=== PATIENT | male | born 1945 | race Caucasian/White ===

== ENCOUNTER 2018-02-27 22:35 | Emergency (ER) | payer MEDICARE ==
[2018-02-28 00:48] LABS: Appearance,Urine Clear (Clear); Bilirubin,Urine Negative (Negative); Blood,Urine Negative (Negative); Color,Urine Yellow; Glucose,Urine (UA) Negative (Negative); Ketones,Urine Negative (Negative); Leukocyte Esterase,Urine Negative (Negative); Nitrite,Urine Negative (Negative); PH, Urine 6.5 (5.0-8.0); Protein,Urine Trace (Negative); Specific Gravity,Urine 1.011 (1.001-1.035); Urobilinogen,Urine <2.0 mg/dL (<2.0)
--- NOTE | 2018-02-28 01:02 | ED ---
Skin/Abscess/FB HPI - General Chief complaint: Skin/Abscess/Foreign Body Stated complaint: rash Time Seen by Provider: 02/27/18 23:08 Source: patient, family Mode of arrival: ambulatory Limitations: no limitations - History of Present Illness Initial comments: 72-year-old male presenting for evaluation of rash to the penis. He states that it initially started out as a discomfort with only mild discoloration however he started putting cream on it and now it is significantly worse. Rash extends from the penis along the perineum to the gluteal cleft. He denies any fevers, significant pain, popping sensation when palpating the area, or enlargement of the scrotum. He is a nondiabetic. - Related Data Previous Rx's Medication Instructions Recorded Nystatin 100,000 Unit/gm Powd 1 applic TOPICAL TID #1 bottle 02/28/18 [Mycostatin Powder] Allergies Allergy/AdvReac Type Severity Reaction Status Date / Time No Known Allergies Allergy Verified 02/27/18 22:41 Review of Systems ROS Statement: Those systems with pertinent positive or pertinent negative responses have been documented in the HPI. ROS Other: All systems not noted in ROS Statement are negative. Constitutional: Denies: fever, chills Eyes: Denies: eye pain, vision change ENT: Denies: ear pain, throat pain Respiratory: Denies: cough, dyspnea Cardiovascular: Denies: chest pain, palpitations Endocrine: Denies: fatigue, polydipsia, polyuria Gastrointestinal: Denies: abdominal pain, nausea, vomiting Genitourinary: Reports: dysuria (ott the urethral meatus), other (rash to glans of penis, along the perineum, and in the gluteal cleft). Denies: urgency , frequency, hematuria, discharge, testicular pain, testicular mass Musculoskeletal: Denies: back pain, arthralgia, myalgia Skin: Reports: rash, lesions, change in color. Denies: change in hair/nails, pruritus Neurological: Denies: headache, weakness Psychiatric: Denies: anxiety, depression Hematological/Lymphatic: Denies: easy bleeding, easy bruising Past Medical History Past Medical History: Hypertension History of Any Multi-Drug Resistant Organisms: None Reported Additional Past Surgical History / Comment(s): tumor removed from left forearm Past Psychological History: No Psychological Hx Reported Smoking Status: Never smoker Past Alcohol Use History: None Reported Past Drug Use History: None Reported General Exam Limitations: no limitations General appearance: alert, in no apparent distress Head exam: Present: atraumatic, normocephalic Eye exam: Present: normal appearance, PERRL, EOMI ENT exam: Present: normal exam, normal oropharynx Neck exam: Present: normal inspection. Absent: tenderness Respiratory exam: Present: normal lung sounds bilaterally. Absent: respiratory distress Cardiovascular Exam: Present: regular rate, normal rhythm GI/Abdominal exam: Present: soft. Absent: distended, tenderness, guarding, rebound, rigid Rectal exam: Present: deferred Extremities exam: Present: normal inspection, full ROM Back exam: Present: normal inspection, full ROM Neurological exam: Present: alert, oriented X3 Psychiatric exam: Present: normal affect, normal mood Skin exam: Present: warm, rash, erythema, other (Consistent with balanitis and candidal infection with satellite lesions. Rash is limited to gluteal cleft and glans penis which is retracted into the penis itself.). Absent: cyanosis, diaphoretic, urticaria, vesicles Course Vital Signs 02/27/18 02/28/18 22:37 01:07 Temperature 99.1 F 97.8 F Pulse Rate 89 80 Respiratory 20 18 Rate Blood Pressure 190/94 140/60 O2 Sat by Pulse 96 98 Oximetry Medical Decision Making - Medical Decision Making 72-year-old male presented for evaluation of rash to the glans of the penis and along the perineum into the gluteal cleft. On physical examination there are lesions to the penis that are consistent with candidal infection. Satellite lesions are also noted to the gluteal cleft. There is no crepitus noted, swelling, abnormal discoloration at the patient is not a diabetic which makes the concern for 4 years gangrene less. Urinalysis was obtained which showed no UTI or fungus in the urine. Patient was given instructions on keeping the area dry and how to use the nystatin powder. Further given return instructions and the concern for 4 years gangrene. The patient acknowledged an understanding of all information provided and agreed with this plan of care. - Lab Data Lab Results 02/28/18 Range/Units 00:40 Urine Color Yellow Urine Appearance Clear (Clear) Urine pH 6.5 (5.0-8.0) Ur Specific [place] 1.011 (1.001-1.035) Urine Protein Trace H (Negative) Urine Glucose (UA) Negative (Negative) Urine Ketones Negative (Negative) Urine Blood Negative (Negative) Urine Nitrite Negative (Negative) Urine Bilirubin Negative (Negative) Urine Urobilinogen <2.0 (<2.0) mg/dL Ur Leukocyte Esterase Negative (Negative) Disposition Clinical Impression: Balanitis, Candidal intertrigo Disposition: HOME SELF-CARE Condition: Stable Instructions: Balanitis (ED), Skin Yeast Infection (ED) Additional Instructions: Please use medication as discussed. Please follow up with family doctor if symptoms have not improved over the next two days. Please return to the emergency room if your symptoms increase or worsen or for any other concerns. Prescriptions: Nystatin 100,000 Unit/gm Powd [Mycostatin Powder] 1 applic TOPICAL TID #1 bottle Is patient prescribed a controlled substance at d/c from ED?: No Referrals: Amado Torres MD [Primary Care Provider] - 1-2 days Time of Disposition: 01:01
[2018-02-28 01:08] VITALS: BP 140/60; PULSE 80; RESP 18; TEMP 97.8
== END 2018-02-28 01:08 | disposition home or self-care (01) ==
LOC: EC 22:35
DX: N48.1 Balanitis (principal); B37.2 Candidiasis of skin and nail
CPT/HCPCS: 81003; 99282

== ENCOUNTER → 2018-03-02 | Outpatient (CLI) | payer MEDICARE ==
--- NOTE | 2018-03-02 13:18 | CT ---
EXAMINATION TYPE: CT abdomen pelvis wo con DATE OF EXAM: 03/02/2018 COMPARISON: NONE HISTORY: 72-year-old male unspecified abdominal pain, Pelvic pain for [address] DLP: 2335 mGycm. Automated exposure control for dose reduction was used. TECHNIQUE: Contiguous axial scanning of the abdomen and pelvis without IV contrast. Coronal and sagit teena reconstructions performed. FINDINGS: Heart borderline enlarged without pericardial effusion. Coronary vessel calcifications are present an d are a marker for coronary artery disease. Bilateral dependent atelectasis. No consolidation or pleu ral effusion. Liver enlarged measuring 21.5 cm. There is low attenuation compatible with fatty infiltration. A few calcified granulomas in the liver. Gallbladder collapsed with small calculi. The adrenal glands, right kidney, and pancreas show no gross abnormality by noncontrast CT. Subcentimeter exophytic hypodensity lateral upper pole left kidney too small for accurate CT characte rization, likely cyst. Spleen enlarged at 15.1 cm with calcified granulomas. No dilated small bowel, free fluid, or free air. Normal appendix. Mild stool burden. No pericolonic i nflammatory change. Prominent distention of the bladder at 16.9 cm up to the level of the umbilicus. Central prostatic c alcifications. Prostate gland measures 4.4 cm wide, mildly prominent. Some prominent inguinal lymph n odes measuring up to 1.3 cm on the right remain nonenlarged by size criteria. Additionally, some prom inent iliac chain lymph nodes measuring up to 1 cm on the right, are present axial image 139 and sagi ttal image 69. Bones: Degenerative changes at the hips, SI joints, and facet arthropathy mid to lower lumbar spine. Endplate spondylosis lower thoracic spine. IMPRESSION: 1. CAD 2. Hepatomegaly (21.5 cm) and hepatic steatosis. Correlate with LFTs, liver profile, and patient ris k factors. 3. Cholelithiasis. 4. Splenomegaly (15.1 cm). 5. Prominent urinary bladder distention up to the level of the umbilicus. Correlate to ensure that t his represents voluntary retention. 6. Scattered borderline sized right external iliac (1 cm) disease and bilateral inguinal lymph nodes (1.3 cm) probably reactive/post inflammatory. These can be followed clinically. Consideration can be given to a three-month follow-up exam to ensure stability/resolution.
== END | disposition home or self-care (01) ==
LOC: RADCTMAIN 12:41
PROVIDERS: ATTEND Family Medicine
DX: I25.10 Atherosclerotic heart disease of native coronary artery without angina pectoris (principal); K80.20 Calculus of gallbladder without cholecystitis without obstruction; R16.2 Hepatomegaly with splenomegaly, not elsewhere classified; N32.89 Other specified disorders of bladder
CPT/HCPCS: 74176

== ENCOUNTER 2018-09-22 09:19 | Day surgery (SDC) | payer MEDICARE ==
[~2018-09-22 09:19] MED LIST: LACTATED RINGERS 1,000 ML IV SCH; LIDOCAINE 1% 20 ML VIAL (10MG/ML) FOR IV START INTRADERMA PRN
[2018-09-22 09:45] VITALS: RESP 18; TEMP 97.8
[2018-09-22] MEDS ORDERED: LACTATED RINGERS 1,000 ML IV ONE (09:45)
[2018-09-22] MEDS ORDERED: PROPOFOL 10 MG/ML 20 ML VIAL IV ONE (11:18)
[2018-09-22] MEDS ORDERED: fentaNYL (PF) 50 MCG/ML 2 ML AMP ONE (11:18)
[2018-09-22] MEDS ORDERED: MIDAZOLAM 2 MG/2 ML VIAL ONE (11:18)
--- NOTE | 2018-09-22 11:48 | P.PCN ---
Date of Procedure: 09/22/18 Procedure(s) Performed: Procedure: Total colonoscopy. Preoperative diagnosis: Screening for neoplasia. Postoperative diagnosis: Sigmoid diverticulosis with no evidence of acute diverticulitis, strictures, polyps or cancer. Preparation HalfLytely prep. Sedation was provided by anesthesia. Brief clinical history: The patient is 73-year-old male who is scheduled for this evaluation for screening for neoplasia age being his risk factor. He had a prior exam more than 7 years ago. He has no abdominal complaints, bleeding or anemia. Procedure: With the patient on his left lateral decubitus position and after informed consent and adequate sedation, the perianal area was inspected and it did not show any fissures or fistulas. There were no masses felt on digital rectal examination. The Olympus CFH 190L video colonoscope was then inserted in the rectum in the usual fashion and advanced to the cecum. There were multiple diverticular orifices seen scattered in the sigmoid but there was no evidence of acute diverticulitis or strictures. No significant polyps or tumors were seen. I retroflexed the endoscope in the rectum before the endoscope was withdrawn. The patient tolerated the procedure well. Plan: The patient was reassured. Discussed dietary measures. I did not schedule a future exam at this time and that can be kept as a contingency based on his overall health around age 81. He will discussed that with you. He will follow up with you as planned.
[2018-09-22 12:23] VITALS: BP 179/80; PULSE 84
== END 2018-09-22 12:24 | disposition home or self-care (01) ==
LOC: ORWHC2ENDO 09:19
DX: Z12.11 Encounter for screening for malignant neoplasm of colon (principal); K57.30 Diverticulosis of large intestine without perforation or abscess without bleeding; I10 Essential (primary) hypertension; E78.5 Hyperlipidemia, unspecified; I25.10 Atherosclerotic heart disease of native coronary artery without angina pectoris; I25.2 Old myocardial infarction; M19.90 Unspecified osteoarthritis, unspecified site; N40.0 Benign prostatic hyperplasia without lower urinary tract symptoms; Z85.828 Personal history of other malignant neoplasm of skin; Z79.1 Long term (current) use of non-steroidal anti-inflammatories (NSAID); Z79.899 Other long term (current) drug therapy
CPT/HCPCS: J2250; J3010; J2704; G0121; 45378

== ENCOUNTER 2019-10-13 09:56 | Emergency (ER) | payer MEDICARE ==
[2019-10-13 10:02] VITALS: TEMP 98
[2019-10-13 11:15] LABS: ALT 27 U/L (4-49); AST 30 U/L (17-59); African American GFR (CKD) >90 (>60 ml/min/1.73 sqM); Albumin 4.5 g/dL (3.5-5.0); Alkaline Phosphatase 81 U/L (38-126); Anion Gap 10 mmol/L; Blood Urea Nitrogen 12 mg/dL (9-20); Carbon Dioxide 31 mmol/L (22-30); Chloride 98 mmol/L (98-107); Glucose 124 mg/dL (74-99); Non-African American GFR(CKD) 87 (>60 ml/min/1.73 sqM); Potassium 3.6 mmol/L (3.5-5.1); Sodium 139 mmol/L (137-145); Total Bilirubin 0.9 mg/dL (0.2-1.3); Total Protein 7.6 g/dL (6.3-8.2)
[2019-10-13 11:19] LABS: D-Dimer 0.58 mg/L FEU (<0.60); INR 0.9 (<1.2); Partial Thromboplastin Time 23.1 sec (22.0-30.0); Prothrombin Time 9.6 sec (9.0-12.0)
[2019-10-13 11:33] LABS: Basophils # (A) 0.1 k/uL (0-0.2); Basophils % (A) 1 %; Eosinophils # (A) 0.1 k/uL (0-0.7); Eosinophils % (A) 1 %; HCT 42.4 % (39.0-53.0); HGB 14.4 gm/dL (13.0-17.5); Lymphocytes # (A) 1.4 k/uL (1.0-4.8); Lymphocytes % (A) 16 %; MCH 28.3 pg (25.0-35.0); Mean Platelet Volume 7.6; Monocytes # (A) 0.6 k/uL (0-1.0); Monocytes % (A) 7 %; Neutrophils # (A) 6.4 k/uL (1.3-7.7); Neutrophils % (A) 74 %; Platelet Count 275 k/uL (150-450); RBC 5.11 m/uL (4.30-5.90); RDW 13.7 % (11.5-15.5); WBC 8.7 k/uL (3.8-10.6)
[2019-10-13 11:45] VITALS: RESP 18
[2019-10-13 11:46] VITALS: PULSE 91
--- NOTE | 2019-10-13 11:47 | ED ---
SOB HPI - General Chief Complaint: Shortness of Breath Stated Complaint: abnormal EKG-sent by Source: patient Mode of arrival: wheelchair Limitations: no limitations - History of Present Illness Initial Comments: The patient is a 74-year-old male past history of GA who presents to the emergency room with reported shortness of breath. He is sent over from the Dr. Torres's office. He states that on Friday he ate some hot chili that he had made. Afterwards he began having shortness of breath. It is worse with exertion and better with rest. He denies a history of COPD or heart failure. No history of DVT or PE. Denies any calf pain or swelling. No pedal edema. He denies any chest pain or palpitations. He went into his primary care office today with a performed an EKG and chest x-ray. They did send him to the emergency room for further evaluation. The patient has a remote history of a heart attack 20 years ago. He does not take any medications currently for his heart. He does take high blood pressure medications. He denies stent placement. Reports that his last stress test was 20 years ago as well. No ripping or tearing sensation to his back. No reproducible pain. Denies any flank pain or back pain. No pain into his lower extremity's. There are no other alleviating, precipitating or modifying factors - Related Data Home Medications Medication Instructions Recorded Confirmed Simvastatin [Zocor] 20 mg PO QAM 09/17/18 10/13/19 Tamsulosin [Flomax] 0.4 mg PO QAM 09/17/18 10/13/19 amLODIPine BESYLATE 10 mg PO QAM 09/17/18 10/13/19 Losartan/Hydrochlorothiazide 1 tab PO DAILY 10/13/19 10/13/19 [Losartan-Hctz 100-25 mg Tab] Omeprazole 40 mg PO DAILY PRN 10/13/19 10/13/19 Simethicone [Gas-X] 125 mg PO Q2H PRN 10/13/19 10/13/19 Allergies Allergy/AdvReac Type Severity Reaction Status Date / Time No Known Allergies Allergy Verified 10/13/19 11:37 Review of Systems ROS Statement: Those systems with pertinent positive or pertinent negative responses have been documented in the HPI. ROS Other: All systems not noted in ROS Statement are negative. Past Medical History Past Medical History: Cancer, Hyperlipidemia, Hypertension, Myocardial Infarc tion (GA), Osteoarthritis (OA), Prostate Disorder Additional Past Medical History / Comment(s): LEFT SHOULDER PAIN. SKIN CANCER Last Myocardial Infarction Date:: UNKNOWN, 20 YEARS AGO. History of Any Multi-Drug Resistant Organisms: None Reported Additional Past Surgical History / Comment(s): Tumor removed from left forearm(SKIN CANCER). COLONOSCOPY. Additional Past Anesthesia/Blood Transfusion Reaction / Comment(s): NEVER HAD GENERAL ANESTHESIA. Past Psychological History: No Psychological Hx Reported Smoking Status: Never smoker General Exam Limitations: no limitations Course Vital Signs 10/13/19 10/13/19 10/13/19 10:01 11:41 11:45 Temperature 98.0 F Pulse Rate 106 H 91 Respiratory 20 18 18 Rate Blood Pressure 200/112 187/105 O2 Sat by Pulse 96 98 Oximetry 10/13/19 12:09 Temperature Pulse Rate 91 Respiratory 18 Rate Blood Pressure 176/104 O2 Sat by Pulse 98 Oximetry Medical Decision Making - Medical Decision Making Upon arrival the patient is placed in room 3. A thorough history and physical exam was performed. We did complete a 12-lead EKG and compared it to the one in office. I did review the patient's chest x-ray that was sent with him. I did recommend completing laboratory studies. CBC is unremarkable. Quite deficiencies are normal. D-dimer is mildly elevated at 0.58 however appropriate for age adjustment. CMP shows a CO2 of 31. Glucose is 124. Troponin is less than 0.012. BNP is 103. I discussed results of the patient. He is able to get up immediately pulse ox is 94%. As the d-dimer is above 0.[address] of the patient's chest. He is given 1 mg of Ativan and does go over to CT. Patient is unable to tolerate the study. I did inform him that I could give him additional medications for sedation for the patient refused and was quite aggressive. He states that he will not be able to complete the study. I recommended hospital admission for VQ scan and possible echo as I am unsure of the patient's etiology of his shortness of breath. The patient adamantly refused stating he did not want to be hospitalized. Because of this I did give a call to Dr. Torres's office. I do talk to Debbie the nurse practitioner. She states that the patient can follow-up in the office tomorrow and they can complete an echo and further testing for his respiratory insufficiency on an outpatient basis. I discussed this with the patient and he agreed to follow up tomorrow. I recommended that he return to the emergency room for any new or worsening symptoms or if he does agree hospital admission. The patient was discharged in stable condition - Lab Data Result diagrams: 10/13/19 10:18 10/13/19 10:18 Lab Results 10/13/19 10/13/19 10/13/19 Range/Units 10:18 10:18 10:18 WBC 8.7 (3.8-10.6) k/uL RBC 5.11 (4.30-5.90) m/uL Hgb 14.4 (13.0-17.5) gm/dL Hct 42.4 (39.0-53.0) % MCV 83.0 (80.0-100.0) fL MCH 28.3 (25.0-35.0) pg MCHC 34.0 (31.0-37.0) g/dL RDW 13.7 (11.5-15.5) % Plt Count 275 (150-450) k/uL Neutrophils % 74 % Lymphocytes % 16 % Monocytes % 7 % Eosinophils % 1 % Basophils % 1 % Neutrophils # 6.4 (1.3-7.7) k/uL Lymphocytes # 1.4 (1.0-4.8) k/uL Monocytes # 0.6 (0-1.0) k/uL Eosinophils # 0.1 (0-0.7) k/uL Basophils # 0.1 (0-0.2) k/uL PT 9.6 (9.0-12.0) sec INR 0.9 (<1.2) APTT 23.1 (22.0-30.0) sec D-Dimer 0.58 (<0.60) mg/L FEU Sodium 139 (137-145) mmol/L Potassium 3.6 (3.5-5.1) mmol/L Chloride 98 (98-107) mmol/L Carbon Dioxide 31 H (22-30) mmol/L Anion Gap 10 mmol/L BUN 12 (9-20) mg/dL Creatinine 0.85 (0.66-1.25) mg/dL Est GFR (CKD-EPI)AfAm >90 (>60 ml/min/1.73 sqM) Est GFR (CKD-EPI)NonAf 87 (>60 ml/min/1.73 sqM) Glucose 124 H (74-99) mg/dL Calcium 10.0 (8.4-10.2) mg/dL Total Bilirubin 0.9 (0.2-1.3) mg/dL AST 30 (17-59) U/L ALT 27 (4-49) U/L Alkaline Phosphatase 81 (38-126) U/L Troponin I (0.000-0.034) ng/mL NT-Pro-B Natriuret Pep pg/mL Total Protein 7.6 (6.3-8.2) g/dL Albumin 4.5 (3.5-5.0) g/dL 10/13/19 10/13/19 Range/Units 10:18 10:18 WBC (3.8-10.6) k/uL RBC (4.30-5.90) m/uL Hgb (13.0-17.5) gm/dL Hct (39.0-53.0) % MCV (80.0-100.0) fL MCH (25.0-35.0) pg MCHC (31.0-37.0) g/dL RDW (11.5-15.5) % Plt Count (150-450) k/uL Neutrophils % % Lymphocytes % % Monocytes % % Eosinophils % % Basophils % % Neutrophils # (1.3-7.7) k/uL Lymphocytes # (1.0-4.8) k/uL Monocytes # (0-1.0) k/uL Eosinophils # (0-0.7) k/uL Basophils # (0-0.2) k/uL PT (9.0-12.0) sec INR (<1.2) APTT (22.0-30.0) sec D-Dimer (<0.60) mg/L FEU Sodium (137-145) mmol/L Potassium (3.5-5.1) mmol/L Chloride (98-107) mmol/L Carbon Dioxide (22-30) mmol/L Anion Gap mmol/L BUN (9-20) mg/dL Creatinine (0.66-1.25) mg/dL Est GFR (CKD-EPI)AfAm (>60 ml/min/1.73 sqM) Est GFR (CKD-EPI)NonAf (>60 ml/min/1.73 sqM) Glucose (74-99) mg/dL Calcium (8.4-10.2) mg/dL Total Bilirubin (0.2-1.3) mg/dL AST (17-59) U/L ALT (4-49) U/L Alkaline Phosphatase (38-126) U/L Troponin I <0.012 (0.000-0.034) ng/mL NT-Pro-B Natriuret Pep 103 pg/mL Total Protein (6.3-8.2) g/dL Albumin (3.5-5.0) g/dL - EKG Data EKG Comments: EKG demonstrates a normal sinus rhythm with ventricular rate of 88. HI interval 196. QRS 104. QTC of 452. No acute ST segment elevations or depressions concerning for ischemic changes. Disposition Clinical Impression: Respiratory insufficiency Disposition: HOME SELF-CARE Condition: Stable Instructions (If sedation given, give patient instructions): Dyspnea (ED) Additional Instructions: Please follow-up with your primary care doctor tomorrow. Call the office in the morning to make an appointment. Return to the emergency room and if you have any new or worsening symptoms, or if you agree to hospitalization Is patient prescribed a controlled substance at d/c from ED?: No Referrals: Amado Torres MD [Primary Care Provider] - 1-2 days Time of Disposition: 12:51
[2019-10-13 12:09] VITALS: BP 176/104
[2019-10-13] MEDS ORDERED: LORazepam 2 MG/ML INJ IV STA (12:33)
== END 2019-10-13 13:07 | disposition home or self-care (01) ==
LOC: EC 09:56
DX: R06.89 Other abnormalities of breathing (principal); R06.02 Shortness of breath; R79.1 Abnormal coagulation profile; I10 Essential (primary) hypertension; E78.5 Hyperlipidemia, unspecified; I25.2 Old myocardial infarction; Z79.899 Other long term (current) drug therapy; Z85.828 Personal history of other malignant neoplasm of skin
CPT/HCPCS: 36415; 80053; 83880; 84484; 85025; 85379; 85610; 85730; 93005; 99285

== ENCOUNTER → 2019-10-14 | Outpatient (CLI) | payer MEDICARE ==
--- NOTE | 2019-10-14 12:00 | CT ---
EXAMINATION TYPE: CT chest w con DATE OF EXAM: 10/14/2019 COMPARISON: Chest x-ray 10/13/2019 from outside institution HISTORY: Abnormal findings on lung fraire and shortness of breath. CT DLP: 865 mGycm Automated exposure control for dose reduction was used. Helical imaging through the chest. CONTRAST: CT scan of the chest is performed with IV Contrast, patient injected with 100 mL of Isovue M300. FINDINGS: LUNGS: Calcified lung nodule in the exterior right upper lobe measures 13 mm in AP dimension. No pleu ral pericardial effusion. No airspace disease. MEDIASTINUM: There are no greater than 1 cm hilar or mediastinal lymph nodes. No pericardial effusi on is seen. Calcified retrocaval pretracheal lymph node is present. Small calcifications present in this region also present. There are coronary artery calcifications present. AORTA: No additional significant abnormality is seen. OTHER: Liver shows low attenuation likely due to hepatic steatosis. Gallbladder shows multiple lumin al stones and is collapsed. Punctate calcifications are present within the spleen. There is thoracic spondylosis. IMPRESSION: Old granulomatous disease. Coronary artery disease. Probable hepatic steatosis. Cholelit hiasis.
== END | disposition home or self-care (01) ==
LOC: RADCTMAIN 10:57
PROVIDERS: ATTEND Family Medicine
DX: R91.8 Other nonspecific abnormal finding of lung field (principal); D71 Functional disorders of polymorphonuclear neutrophils
CPT/HCPCS: 71260; Q9967

== ENCOUNTER 2019-11-06 10:14 | Inpatient (IN) | payer MEDICARE ==
[2019-11-06 10:47] LABS: Basophils % (A) 0 %; Eosinophils # (A) 0.1 k/uL (0-0.7); Eosinophils % (A) 2 %; HCT 43.9 % (39.0-53.0); HGB 15.2 gm/dL (13.0-17.5); Lymphocytes # (A) 1.6 k/uL (1.0-4.8); Lymphocytes % (A) 17 %; MCH 28.6 pg (25.0-35.0); MCHC 34.5 g/dL (31.0-37.0); MCV 82.9 fL (80.0-100.0); Monocytes # (A) 0.5 k/uL (0-1.0); Monocytes % (A) 5 %; Neutrophils # (A) 7.1 k/uL (1.3-7.7); Neutrophils % (A) 74 %; Platelet Count 259 k/uL (150-450); RDW 13.2 % (11.5-15.5); WBC 9.6 k/uL (3.8-10.6)
[2019-11-06 10:59] LABS: ALT 26 U/L (4-49); AST 28 U/L (17-59); African American GFR (CKD) >90 (>60 ml/min/1.73 sqM); Albumin 4.7 g/dL (3.5-5.0); Alkaline Phosphatase 77 U/L (38-126); Anion Gap 8 mmol/L; Blood Urea Nitrogen 17 mg/dL (9-20); Calcium 9.6 mg/dL (8.4-10.2); Carbon Dioxide 32 mmol/L (22-30); Chloride 98 mmol/L (98-107); Glucose 130 mg/dL (74-99); Magnesium 1.9 mg/dL (1.6-2.3); Non-African American GFR(CKD) 87 (>60 ml/min/1.73 sqM); Potassium 3.7 mmol/L (3.5-5.1); Sodium 138 mmol/L (137-145); Total Bilirubin 0.9 mg/dL (0.2-1.3); Total Protein 7.7 g/dL (6.3-8.2)
[2019-11-06 11:22] LABS: INR 0.9 (<1.2); Partial Thromboplastin Time 24.9 sec (22.0-30.0); Prothrombin Time 9.7 sec (9.0-12.0)
--- NOTE | 2019-11-06 11:28 | ED ---
Chest Pain HPI - General Chief Complaint: Chest Pain Stated Complaint: chest pain Time Seen by Provider: 11/06/19 10:15 Source: patient Mode of arrival: wheelchair Limitations: no limitations - History of Present Illness Initial Comments: The patient is a 74-year-old male past history of hypertension presents emergency Department with reported chest pain. He states the pain has been going on for approximately the past 3 weeks. It was intermittent in nature however it has become more constant. States that he becomes short of breath when exerting himself. The pain is described as a pressure sensation over the left side of his chest without radiation. No current pain at this time. He denies any numbness or tingling in his upper extremity. No ripping or tearing sensation to his back. Denies cough or hemoptysis. It was recommended that the patient have a cath done however the patient refused. He did follow up with Dr. Pfeiffer in office yesterday. Patient reported improved symptoms and therefore they planned to proceed with a stress test. The patient then went into Dr. Torres's office today reporting that he was having increasing chest pain. Melissa discussed the case with Dr. Pfeiffer they did agree that the patient should come into the emergency department, be made nothing by mouth and plan for cath. The patient denies any fevers or chills. He denies having previous history of stress testing or catheterization. No previous cardiac history. There are no other alleviating, precipitating or modifying factors - Related Data Home Medications Medication Instructions Recorded Confirmed Simvastatin [Zocor] 20 mg PO DAILY 09/17/18 11/06/19 Tamsulosin [Flomax] 0.4 mg PO DAILY 09/17/18 11/06/19 Omeprazole 40 mg PO DAILY 10/13/19 11/06/19 Hydrochlorothiazide 25 mg PO DAILY 11/06/19 11/06/19 Losartan Potassium [Cozaar] 100 mg PO DAILY 11/06/19 11/06/19 Allergies Allergy/AdvReac Type Severity Reaction Status Date / Time No Known Allergies Allergy Verified 11/06/19 12:14 Review of Systems ROS Statement: Those systems with pertinent positive or pertinent negative responses have been documented in the HPI. ROS Other: All systems not noted in ROS Statement are negative. EKG Findings - EKG Comments: EKG Findings:: EKG completed at 1029 demonstrates a normal sinus rhythm with a ventricular rate of 93. PA interval 186. QRS 104. QTC of 465. There is J- point elevation in lead 2 and aVF. Inverted T-wave in lead V6. No acute ST segment elevations. Q wave in lead 3 Past Medical History Past Medical History: Cancer, Hyperlipidemia, Hypertension, Myocardial Infarction ([place]), Osteoarthritis (OA), Prostate Disorder Additional Past Medical History / Comment(s): LEFT SHOULDER PAIN. SKIN CANCER Last Myocardial Infarction Date:: UNKNOWN, 20 YEARS AGO. History of Any Multi-Drug Resistant Organisms: None Reported Additional Past Surgical History / Comment(s): Tumor removed from left forearm(SKIN CANCER). COLONOSCOPY. Additional Past Anesthesia/Blood Transfusion Reaction / Comment(s): NEVER HAD GENERAL ANESTHESIA. Past Psychological History: No Psychological Hx Reported Smoking Status: Never smoker Past Alcohol Use History: None Reported Past Drug Use History: None Reported General Exam Limitations: no limitations General appearance: alert, in no apparent distress Head exam: Present: atraumatic, normocephalic, normal inspection Eye exam: Present: normal appearance, PERRL, EOMI. Absent: scleral icterus, conjunctival injection, periorbital swelling ENT exam: Present: normal exam, mucous membranes moist Neck exam: Present: normal inspection. Absent: tenderness, meningismus, lymphadenopathy Respiratory exam: Present: normal lung sounds bilaterally. Absent: respiratory distress, wheezes, rales, rhonchi, stridor Cardiovascular Exam: Present: regular rate, normal rhythm, normal heart sounds. Absent: systolic murmur, diastolic murmur, rubs, gallop, clicks GI/Abdominal exam: Present: soft, normal bowel sounds. Absent: distended, tenderness, guarding, rebound, rigid Extremities exam: Present: normal inspection, full ROM, normal capillary refill. Absent: tenderness, pedal edema, joint swelling, calf tenderness Back exam: Present: normal inspection Neurological exam: Present: alert, oriented X3, CN II-XII intact Psychiatric exam: Present: normal affect, normal mood Skin exam: Present: warm, dry, intact, normal color. Absent: rash Course Vital Signs 11/06/19 11/06/19 11/06/19 10:15 10:19 11:19 Temperature 98.4 F Pulse Rate 92 92 Respiratory 20 20 18 Rate Blood Pressure 186/102 199/111 O2 Sat by Pulse 95 96 Oximetry 11/06/19 11/06/19 12:15 13:30 Temperature 98.0 F Pulse Rate 104 H 81 Respiratory 20 18 Rate Blood Pressure 155/92 153/88 O2 Sat by Pulse 95 95 Oximetry Chest Pain MDM - MDM Upon arrival the patient was placed in room 1. A thorough history and physical exam was performed. Patient denies any use having any active chest pain to me. Did recommend laboratory studies and a chest x-ray. Troponin is 0.017. Chest x-ray demonstrates hemoglobin with vascular congestion. The patient was reevaluated and begins to complain of chest pain graded 5 out of 10 pain to the nurse. Because of this I did order for chewable aspirins and a sublingual nitro. I discussed the results with the patient. I discussed the case with Dr. hinton who did recommend heparinizing the patient. He has no contraindications to heparin. Patient was admitted sound physicians. I discussed the case with Dr. Grande who accepted admission. The patient is currently awaiting a bed on the floor Disposition Clinical Impression: Chest pain, Respiratory insufficiency Disposition: ADMITTED IP TO THIS [facility] Condition: Stable Is patient prescribed a controlled substance at d/c from ED?: No Decision to Admit Reason: Admit from EC Decision Date: 11/06/19 Decision Time: 11:54
[2019-11-06] MEDS ORDERED: ASPIRIN 81 MG PO STA (11:30)
[2019-11-06] MEDS ORDERED: NITROGLYCERIN SL TABS 0.4 MG TAB SUBLINGUAL STA (11:30)
--- NOTE | 2019-11-06 11:31 | XR ---
EXAMINATION TYPE: XR chest 2V DATE OF EXAM: 11/06/2019 HISTORY: Chest Pain. REFERENCE: NONE. FINDINGS: The heart is mildly enlarged. Lung volumes are prominent. There is mild vascular congestion without tara change. Pleural spaces are clear. IMPRESSION: 1. CARDIOMEGALY. 2. VASCULAR CONGESTION WITHOUT TARA EDEMA
[2019-11-06] MEDS ORDERED: HEPARIN SODIUM,PORCINE 5,000 UNIT/ML 1 ML VIAL IV ONE (11:34)
[2019-11-06] MEDS: HEPARIN SOD,PORK IN 0.45% NACL 25,000 UNIT in 0.45% NACL 1 250ML.BAG IV SCH (12:21)
[2019-11-06] MEDS ORDERED: NALOXONE 0.4 MG/ML 1 ML VIAL IV PRN (12:31)
[2019-11-06] MEDS ORDERED: NITROGLYCERIN OINT 1 INCH/GM PACKET TOPICAL STA (12:37)
[2019-11-06] MEDS: METOPROLOL TARTRATE 50 MG TAB PO SCH ×2 (12:54→20:18)
[2019-11-06] MEDS: ATORVASTATIN 80 MG TAB PO SCH (12:54)
[2019-11-06] MEDS ORDERED: HYDROcodone/APAP 5-325MG 1 EACH TAB PO PRN (12:56)
[2019-11-06] MEDS ORDERED: ACETAMINOPHEN TAB 325 MG TAB PO PRN (12:56)
--- NOTE | 2019-11-06 13:08 | P.HPIM ---
History of Present Illness H&P Date: 11/06/19 Chief Complaint: Chest pain 74-year-old male with PMH of hypertension presents the ED for chest pain. Patient reports chest pain that has been ongoing for the past month. His pain was initially intermittent. Patient reported the pain to occur 1-2 times a week lasting 4-5 hours at a time. Patient reported that the pain occurred usually at night or early in the morning. Last night, patient started experiencing chest pain after dinner. He describes the pain as all across his chest, 8 out of 10 in severity, pressure-like in sensation. He denies any alleviating or ag gravating factors. His chest pain was associated with shortness of breath. He is a nonsmoker. When his symptoms persisted, he went to go see his PCP today who prompted him to come to the ED. Currently, he complains of tension-like headache. He denies any lower extremity edema, nausea or vomiting, fever or chills, cough, palpitations, changes in urination or bowel habits. No changes in appetite or weight. He denies any dizziness, numbness/weakness/tingling of the extremities. Patient was noted to be in hypertensive urgency with BP of 199/111. CBC and coagulation panel was negative. CMP showed bicarbonate 32, glucose 130. Troponin was 0.017, EKG showing normal sinus rhythm. BNP was 97, chest x-ray showing vascular congestion without edema. Patient is started on a heparin drip and admitted for cardiology evaluation and possible coronary angiogram. Review of Systems Pertinent positives and negatives as discussed in HPI, a complete review of systems was performed and all other systems are negative. Past Medical History Past Medical History: Cancer, Hyperlipidemia, Hypertension, Myocardial Infarction ([place]), Osteoarthritis (OA), Prostate Disorder Additional Past Medical History / Comment(s): LEFT SHOULDER PAIN. SKIN CANCER Last Myocardial Infarction Date:: UNKNOWN, 20 YEARS AGO. History of Any Multi-Drug Resistant Organisms: None Reported Additional Past Surgical History / Comment(s): Tumor removed from left forearm(SKIN CANCER). COLONOSCOPY. Additional Past Anesthesia/Blood Transfusion Reaction / Comment(s): NEVER HAD GENERAL ANESTHESIA. Past Psychological History: No Psychological Hx Reported Smoking Status: Never smoker Past Alcohol Use History: None Reported Past Drug Use History: None Reported Medications and Allergies Home Medications Medication Instructions Recorded Confirmed Type Simvastatin [Zocor] 20 mg PO DAILY 09/17/18 11/06/19 History Tamsulosin [Flomax] 0.4 mg PO DAILY 09/17/18 11/06/19 History Omeprazole 40 mg PO DAILY 10/13/19 11/06/19 History Hydrochlorothiazide 25 mg PO DAILY 11/06/19 11/06/19 History Losartan Potassium [Cozaar] 100 mg PO DAILY 11/06/19 11/06/19 History Allergies Allergy/AdvReac Type Severity Reaction Status Date / Time No Known Allergies Allergy Verified 11/06/19 12:14 Physical Exam Vitals: Vital Signs Temp Pulse Resp BP Pulse Ox 11/06/19 12:15 104 H 20 155/92 95 11/06/19 11:19 92 18 199/111 96 11/06/19 10:19 20 11/06/19 10:15 98.4 F 92 20 186/102 95 Intake and Output 11/05/19 11/06/19 11/06/19 22:59 06:59 14:59 Other: Weight 136.078 kg General: [non toxic], [no distress], [appears at stated age] Derm: [warm], [dry] Head: [atraumatic], [normocephalic], [symmetric] Eyes: [EOMI], [no lid lag], [anicteric sclera] Mouth: [no lip lesion], [mucus membranes moist] Cardiovascular: [S1S2 reg], [no murmur], [positive DP pulse bilateral], Lungs: [CTA bilateral], [no rhonchi, no rales] , [no accessory muscle use] Abdominal: [soft], [ nontender to palpation], [no guarding], [no appreciable organomegaly] Ext: [no gross muscle atrophy], [1+ pitting lower extremity edema], [no contractures] Neuro: [ CN II-XI grossly intact], [no focal neuro deficits] Psych: [Alert], [oriented], [appropriate affect] Results CBC & Chem 7: 11/06/19 10:32 11/06/19 10:32 Labs: Abnormal Lab Results - Last 24 Hours (Table) 11/06/19 Range/Units 10:32 Carbon Dioxide 32 H (22-30) mmol/L Glucose 130 H (74-99) mg/dL Assessment and Plan Assessment: Chest pain with history of dyslipidemia rule out acute coronary syndrome Hypertensive urgency GERD BPH Initial troponin is 0.017 with EKG showing normal sinus rhythm. Chest x-ray showing mild pulmonary vascular congestion. Given history of dyslipidemia and hypertension, plan to rule out ACS. Continue to trend 2 troponin/EKG. Heparin drip will be started. Telemetry monitoring will be continued. He has been started on aspirin, metoprolol and Lipitor daily. Echocardiogram has been ordered and cardiology has been consulted. Current BP 155/92. He has been started on metoprolol by mouth. We will continue hydrochlorothiazide and losartan. Vitals are be monitored and medications adjusted as necessary. We will restart Protonix for GERD. We will restart tamsulosin for BPH. DVT prophylaxis: [Heparin drip] Discussed with: [Patient and ] Anticipated discharge: [1-2 days] Anticipated discharge place: [Home] A total of [45] minutes was spent on the care of this complex patient more than 50% of the time was spent in counseling and care coordination. Patient names his Anette decision maker if he can't make decisions for h imself. Patient will like to be no code. This was agreed upon with the as well.
[2019-11-06] MEDS: HYDROCHLOROTHIAZIDE 25 MG TAB PO SCH (14:21)
[2019-11-06] MEDS: PANTOPRAZOLE 40 MG TABLET PO SCH (14:21)
[2019-11-06] MEDS: LOSARTAN 50 MG TAB PO SCH (14:21)
[2019-11-06] MEDS ORDERED: LORazepam 1 MG TAB PO PRN (15:06)
[2019-11-06] MEDS ORDERED: LORazepam 2 MG/ML INJ IV STA (15:06)
[2019-11-06] MEDS: HEPARIN SODIUM,PORCINE 5,000 UNIT/ML 1 ML VIAL IV PRN (20:18)
[2019-11-07] MEDS: HEPARIN SODIUM,PORCINE 5,000 UNIT/ML 1 ML VIAL IV PRN ×2 (01:07→07:01)
[2019-11-07] MEDS: LOSARTAN 50 MG TAB PO SCH (05:14)
[2019-11-07] MEDS: PANTOPRAZOLE 40 MG TABLET PO SCH (05:14)
[2019-11-07] MEDS: ATORVASTATIN 80 MG TAB PO SCH (05:14)
[2019-11-07] MEDS: TAMSULOSIN 0.4 MG CAP.ER.24H PO SCH (05:14)
[2019-11-07] MEDS: METOPROLOL TARTRATE 50 MG TAB PO SCH ×2 (05:14→20:33)
[2019-11-07 06:42] LABS: Basophils % (A) 0 %; Eosinophils # (A) 0.1 k/uL (0-0.7); Eosinophils % (A) 1 %; HCT 41.1 % (39.0-53.0); Lymphocytes # (A) 1.6 k/uL (1.0-4.8); Lymphocytes % (A) 17 %; MCH 28.5 pg (25.0-35.0); MCV 83.8 fL (80.0-100.0); Mean Platelet Volume 7.4; Monocytes # (A) 0.8 k/uL (0-1.0); Monocytes % (A) 8 %; Neutrophils # (A) 6.9 k/uL (1.3-7.7); Neutrophils % (A) 71 %; Platelet Count 270 k/uL (150-450); RDW 13.2 % (11.5-15.5); WBC 9.7 k/uL (3.8-10.6)
[2019-11-07] MEDS: HEPARIN SOD,PORK IN 0.45% NACL 25,000 UNIT in 0.45% NACL 1 250ML.BAG IV SCH (07:50)
[2019-11-07] MEDS ORDERED: ASPIRIN 81 MG ONE (08:22)
[2019-11-07] MEDS ORDERED: LIDOCAINE 1% INJ 10MG/ML (20 ML MDV) SQ ONE ×2 (08:26→08:27)
[2019-11-07] MEDS ORDERED: MIDAZOLAM 2 MG/2 ML VIAL IV ONE (08:26)
[2019-11-07] MEDS: VERAPAMIL SYRINGE (5 MG/10 ML) INTRAARTER ONE ×2 (08:27→08:52)
[2019-11-07] MEDS ORDERED: hydrALAZINE HCL 20 MG/ML 1 ML VIAL ONE (08:28)
[2019-11-07] MEDS ORDERED: ENALAPRILAT 1.25 MG/ML 1 ML VIAL ONE (08:28)
[2019-11-07] MEDS ORDERED: ENALAPRILAT 1.25 MG/ML 1 ML VIAL IV ONE (08:30)
[2019-11-07] MEDS ORDERED: hydrALAZINE HCL 20 MG/ML 1 ML VIAL IV ONE (08:30)
[2019-11-07] MEDS ORDERED: IV FLUID CONTINUATION 200 ML IV ONE (08:31)
[2019-11-07] MEDS ORDERED: ASPIRIN 81 MG PO ONE (08:31)
[2019-11-07] MEDS ORDERED: BIVALIRUDIN BOLUS 250 MG/50 ML IV ONE (08:36)
[2019-11-07] MEDS ORDERED: BIVALIRUDIN 250 MG in SODIUM CHLORIDE 0.9% 34 ML IV ONE (08:38)
[2019-11-07] MEDS ORDERED: CLOPIDOGREL 75 MG TAB ONE (08:40)
[2019-11-07] MEDS ORDERED: NITROGLYCERIN 1000MCG/10ML SYRINGE INTRACORON ONE (08:49)
[2019-11-07] MEDS ORDERED: CLOPIDOGREL 75 MG TAB PO ONE (08:51)
[2019-11-07] MEDS ORDERED: IOPAMIDOL-370 125ML BTL INJ ONE (08:52)
[2019-11-07] MEDS ORDERED: ZOLPIDEM 5 MG TAB PO PRN (08:58)
[2019-11-07] MEDS ORDERED: ATROPINE SULFATE 0.1 MG/ML 10ML SYRINGE IV PRN (08:58)
[2019-11-07] MEDS ORDERED: NITROGLYCERIN SL TABS 0.4 MG TAB SUBLINGUAL PRN (08:58)
[2019-11-07] MEDS ORDERED: RX INFO: IV CONTRAST WAS GIVEN 1 EACH MISC MISCELLANE PRN (08:58)
[2019-11-07] MEDS ORDERED: MAG HYDROX/AL HYDROX/SIMETH 30 ML CUP PO PRN (08:58)
[2019-11-07] MEDS ORDERED: SODIUM CHLORIDE 0.9% 1,000 ML IV SCH (09:00)
--- NOTE | 2019-11-07 11:19 | CC ---
CARDIAC CATHETERIZATION REPORT PERFORMING PHYSICIAN: Mahad Poe MD. PROCEDURE PERFORMED: 1. Selective right and left coronary angiogram. 2. Left heart catheterization. 3. Successful stenting of the mid RCA using 3.5 x 15 mm Xience STEVE with an excellent angiographic results and reduction of stenosis from 80% to 0%. INDICATION: This is a 74-year-old gentleman with history of hypertension and dyslipidemia and obesity, who presented to the hospital to the emergency room with chest discomfort. He underwent he underwent an EKG which revealed sinus rhythm with nonspecific changes. Because of the nature of his symptoms, we decided to pursue with heart catheterization. APPROACH: Right radial artery. COMPLICATION: None. LEVEL OF SEDATION: Moderate with sedation length of 27 minutes. PROCEDURE DESCRIPTION: After obtaining an informed consent, the patient was brought to the cardiac electrical laboratory technician. The right radial artery was cannulated using micropuncture technique and a micropuncture wire passed easily. Then I placed a 6-[place] sheath 11 cm at the right radial artery. After that I did selective right and left coronary angiogram with JR4 and JL3.5 catheters. Left heart catheterization was performed using the JR4 catheter which crossed the aortic valve then I did pullback across the valve. The procedure was completed without any complication. SELECTIVE CORONARY ANGIOGRAM: 1. The right coronary artery is a large caliber vessel and it is a dominant vessel. The RCA is calcified. The mid RCA has a tight lesion appeared to be in the range of 70% to 80%. The RCA distally has another lesion appeared to be in the range of 40% to 50%. 2. The left main is angiographically normal it bifurcates into LCX, ramus intermedius, and left anterior descending artery. 3. The LCX is a large caliber vessel it is a nondominant vessel and appeared to be angiographically normal. In the midportion gives rise into an OM branch which seems to be normal. 4. The ramus intermedius is angiographically normal and is a large caliber vessel. 5. The LAD is a large caliber vessel. The LAD is angiographically normal. In the proximal portion gives rise into first diagonal branch which seems to be normal and in the midportion gives rise into a second diagonal branch which seems to be normal as well. HEMODYNAMICS: The LVEDP was 18-20 mmHg without significant gradient across aortic valve. PCI OF THE RCA: Excellent anticoagulation was achieved with Angiomax with bolus and drip. Subsequently I did engage the RCA using JR4 guide. It was wired using a run-through wire. After that, I did balloon angioplasty using 3.0 x 12 mm balloon before I deployed 3.5 x 15 mm Xience STEVE where the stent was positioned under fluoroscopy guidance and deployed under its nominal pressure. I had to double wire the RCA using a cisco wire to get the stent down to the mid RCA. The stent was deployed after the cisco wire was withdrawn out. The procedure was completed without any complication. CONCLUSION: 1. Calcified right and left coronary systems. 2. 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 3. Successful stenting of the mid RCA using 3.5 x 15 mm Xience STEVE with an excellent angiographic results and reduction of stenosis from 80% to 0%. 4. Mild disease involving the left coronary system. POSTPROCEDURE MANAGEMENT: 1. Dual anti-platelet therapy. 2. Risk factor modifications. 3. Aggressive cholesterol control. 4. Follow up with the patient. MMODL / IJN: [id number] /
--- NOTE | 2019-11-07 12:50 | ECHOF ---
Referral Reason:chest pain MEASUREMENTS -------- HEIGHT: 180.3 cm WEIGHT: 136.1 kg BP: IVSd: 1.6 cm (0.6 - 1.1) LVIDd: 3.4 cm (3.9 - 5.3) LVPWd: 2.0 cm (0.6 - 1.1) IVSs: 1.4 cm LVIDs: 2.0 cm LVPWs: 2.1 cm MV E Luis Carlos: 0.50 m/s MV DecT: 134 ms MV A Luis Carlos: 0.92 m/s MV E/A Ratio: 0.55 AV maxP.73 mmHg AV meanP.80 mmHg RAP: 5.00 mmHg RVSP: 13.19 mmHg FINDINGS -------- Sinus rhythm. This was a technically difficult study with suboptimal views. The left ventricular size is normal. There is severe concentric left ventricular hypertrophy. Ove rall left ventricular systolic function is normal with, an EF between 55 - 60 %. The right ventricle is normal in size. The left atrial size is normal. The right atrial size is normal. Lumason used The aortic valve was not well visualized. Mild aortic stenosis with peak/mean pressure gradient of 29.73mmHg / 18.80mmHg , the aortic valve area by continuity equation is {HECTOR}. Peak/mean gradient a cross the Aortic Valve is 29.73mmHg / 18.80mmHg. The mitral valve was not well visualized. There is trace mitral regurgitation. The tricuspid valve was not well visualized. Trace tricuspid regurgitation present. Right ventric ular systolic pressure is normal at < 35 mmHg. The pulmonic valve was not well visualized. The aortic root size is normal. IVC Not well visulized. CONCLUSIONS -------- 1. Sinus rhythm. 2. This was a technically difficult study with suboptimal views. 3. The left ventricular size is normal. 4. There is severe concentric left ventricular hypertrophy. 5. Overall left ventricular systolic function is normal with, an EF between 55 - 60 %. 6. The right ventricle is normal in size. 7. The left atrial size is normal. 8. The right atrial size is normal. 9. Lumason used 10. The aortic valve was not well visualized. 11. Mild aortic stenosis with peak/mean pressure gradient of 29.73mmHg / 18.80mmHg , the aortic valve area by continuity equation is {HECTOR}. 12. Peak/mean gradient across the Aortic Valve is 29.73mmHg / 18.80mmHg. 13. The mitral valve was not well visualized. 14. There is trace mitral regurgitation. 15. The tricuspid valve was not well visualized. 16. Trace tricuspid regurgitation present. 17. Right ventricular systolic pressure is normal at < 35 mmHg. 18. The pulmonic valve was not well visualized. 19. The aortic root size is normal. 20. IVC Not well visulized. NETWORK SECURITY ADMINISTRATOR: Beatrice Starkey RDCS
--- NOTE | 2019-11-07 12:55 | P.CRDCN ---
History of Present Illness Consult date: 11/06/19 History of present illness: This is Dr. Mckinley dictating a consult on this patient The patient was interviewed and examined by me in the emergency room on Friday IMPRESSION / ASSESSMENT: Intermittent chest discomfort Shortness of breath with minimal exertion Hypertension with elevated blood pressure readings PLAN: Rule out non-Q-wave myocardial infarction cardiac enzymes Blood pressure control Resume home medications Coronary angiography within 24 hours The patient was instructed that if he had any chest discomfort on current medical treatment including IV heparin, that he should inform the nurses immediately Discussed with Dr. Poe HPI Patient of Dr. Pfeiffer was been complaining of shortness of breath and exertion and awaiting a stress test. However he went to the urgent care complaining of being very short of breath with minimal exertion and was transferred to the hospital ER. I saw him in the ER. Blood pressure 180 60 102 mmHg pulse rate in the 90s afebrile He was resting comfortably in bed. He also complained of intermittent chest discomfort for the last 3 weeks but his main complaint today was shortness of breath with minimal exertion. Coronary angiography had been recommended the past ROS: No fever chills or rigors, no cough, phlegm or expectoration, no nausea, vomiting or diarrhea, no hematuria, dysuria, no musculoskeletal complaints, no strokes or seizures, no skin lesions. EXAMINATION: Elevated blood pressure readings afebrile Breath sounds are reduced bilaterally Soft systolic murmur no S3 gallop Abdomen soft. Extremity is warm no edema No JVD Obesity REVIEW OF LABS, ECG & MEDICAL DATA Past history of hypertension and dyslipidemia and BPH Labs are pending Twelve-lead ECG shows sinus rhythm with normal cardiac intervals and nonspecific inferolateral ST segment abnormalities Past Medical History Past Medical History: Cancer, Hyperlipidemia, Hypertension, Myocardial Infarction (PR), Osteoarthritis (OA), Prostate Disorder Additional Past Medical History / Comment(s): LEFT SHOULDER PAIN. SKIN CANCER, anxiety Last Myocardial Infarction Date:: UNKNOWN, 20 YEARS AGO. History of Any Multi-Drug Resistant Organisms: None Reported Additional Past Surgical History / Comment(s): Tumor removed from left forearm(SKIN CANCER). COLONOSCOPY. Additional Past Anesthesia/Blood Transfusion Reaction / Comment(s): NEVER HAD GENERAL ANESTHESIA. Past Psychological History: Anxiety Smoking Status: Never smoker Past Alcohol Use History: None Reported Past Drug Use History: None Reported Medications and Allergies Home Medications Medication Instructions Recorded Confirmed Type Simvastatin [Zocor] 20 mg PO DAILY 09/17/18 11/06/19 History Tamsulosin [Flomax] 0.4 mg PO DAILY 09/17/18 11/06/19 History Omeprazole 40 mg PO DAILY 10/13/19 11/06/19 History Hydrochlorothiazide 25 mg PO DAILY 11/06/19 11/06/19 History Losartan Potassium [Cozaar] 100 mg PO DAILY 11/06/19 11/06/19 History Allergies Allergy/AdvReac Type Severity Reaction Status Date / Time No Known Allergies Allergy Verified 11/06/19 12:14 Physical Exam Vitals: Vital Signs Temp Pulse Pulse Resp BP BP Pulse Ox 11/07/19 11:00 64 18 133/82 96 11/07/19 10:45 64 18 11/07/19 10:30 58 L 16 139/85 96 11/07/19 10:00 60 16 148/81 95 11/07/19 09:45 57 L 18 155/83 95 11/07/19 09:30 66 18 146/85 95 11/07/19 09:15 98.1 F 67 18 152/80 95 11/07/19 04:07 97.6 F 74 20 149/88 95 11/07/19 00:00 97.8 F 67 18 182/73 96 11/06/19 20:00 97.4 F L 79 20 152/78 94 L 11/06/19 14:55 98.1 F 78 20 157/81 94 L 11/06/19 13:30 98.0 F 81 18 153/88 95 Intake and Output 11/06/19 11/07/19 11/07/19 22:59 06:59 14:59 Intake Total 78.333 166.721 236.899 Output Total 200 400 Balance -121.667 166.721 -163.101 Intake: IV 230 Intake, IV Titration 78.333 166.721 6.899 Amount Heparin Sod,Pork in 0.45% 78.333 166.721 6.899 NaCl 25,000 unit In 0.45 % NaCl 1 250ml.bag @ 7.35 UNITS/KG/HR 10.002 mls/ hr IV .Q24H [facility] Rx#: [id number] Output: Urine 200 400 Other: # Voids 1 Weight 104.4 kg Results 11/07/19 05:53 11/06/19 10:32 Cardiac Enzymes 11/06/19 11/06/19 Range/Units 16:30 22:43 Troponin I 0.017 0.019 (0.000-0.034) ng/mL Coagulation 11/06/19 11/07/19 11/07/19 Range/Units 18:24 00:21 05:53 PT 10.0 (9.0-12.0) sec APTT 23.3 36.1 H 42.0 H (22.0-30.0) sec CBC 11/07/19 Range/Units 05:53 WBC 9.7 (3.8-10.6) k/uL RBC 4.90 (4.30-5.90) m/uL Hgb 14.0 (13.0-17.5) gm/dL Hct 41.1 (39.0-53.0) % Plt Count 270 (150-450) k/uL Current Medications Generic Name Dose Route Start Last Admin Trade Name Freq PRN Reason Stop Dose Admin Acetaminophen 650 mg 11/06/19 12:56 Tylenol Tab PO Q6HR PRN Mild Pain or Fever > 100.5 Hydrocodone Bitart/Acetaminophen 1 each 11/06/19 12:56 Morgan 5-325 PO Q4HR PRN Moderate Pain Al Hydroxide/Mg Hydroxide 30 ml 11/07/19 08:58 Maalox PO Q4HR PRN Heartburn Atorvastatin Calcium 80 mg 11/06/19 12:45 11/07/19 05:14 Lipitor PO 80 mg DAILY [facility] Administration Atropine Sulfate 0.5 mg 11/07/19 08:58 Atropine IV ONCE PRN Symptomatic Bradycardia Clopidogrel Bisulfate 75 mg 11/08/19 09:00 Plavix PO DAILY [facility] Hydrochlorothiazide 25 mg 11/06/19 13:15 11/06/19 14:21 Hydrodiuril PO Not Given DAILY [facility] Sodium Chloride 1,000 mls @ 75 mls/hr 11/07/19 09:00 Saline 0.9% IV 11/07/19 15:01 .[id number] [facility] Lorazepam 1 mg 11/06/19 15:06 11/06/19 19:02 Ativan PO 1 mg Q4HR PRN Administration Anxiety Losartan Potassium 100 mg 11/06/19 13:15 11/07/19 05:14 Cozaar PO 100 mg DAILY [facility] Administration Metoprolol Tartrate 50 mg 11/06/19 12:45 11/07/19 05:14 Lopressor PO 50 mg BID [facility] Administration Miscellaneous Information 1 each 11/07/19 08:58 Rx Info: Iv Contrast Was Given MISCELLANE 11/09/19 08:58 DAILY PRN Per Protocol Naloxone HCl 0.2 mg 11/06/19 12:31 Narcan IV Q2M PRN Opioid Reversal Nitroglycerin 0.4 mg 11/07/19 08:58 Nitrostat SUBLINGUAL Q5M PRN Chest Pain Pantoprazole Sodium 40 mg 11/06/19 13:15 11/07/19 05:14 Protonix PO 40 mg [id number] [facility] Administration Tamsulosin HCl 0.4 mg 11/07/19 09:00 11/07/19 05:14 Flomax PO 0.4 mg DAILY [facility] Administration Zolpidem Tartrate 5 mg 11/07/19 08:58 Ambien PO HS PRN Insomnia Intake and Output 11/06/19 11/07/19 11/07/19 22:59 06:59 14:59 Intake Total 78.333 166.721 236.899 Output Total 200 400 Balance -121.667 166.721 -163.101 Intake: IV 230 Intake, IV Titration 78.333 166.721 6.899 Amount Heparin Sod,Pork in 0.45% 78.333 166.721 6.899 NaCl 25,000 unit In 0.45 % NaCl 1 250ml.bag @ 7.35 UNITS/KG/HR 10.002 mls/ hr IV .Q24H [facility] Rx#: [id number] Output: Urine 200 400 Other: # Voids 1 Weight 104.4 kg 11/07/19 05:53 11/06/19 10:32
[2019-11-07] MEDS: HYDROCHLOROTHIAZIDE 25 MG TAB PO SCH (13:06)
--- NOTE | 2019-11-07 14:00 | P.PN ---
Subjective Progress Note Date: 11/07/19 Principal diagnosis: Chest pain Patient is currently feeling better. He reported no chest pain or shortness of breath to me this morning. Objective - Vital Signs Vital signs: Vital Signs Temp 98.1 F 11/07/19 09:15 Pulse 64 11/07/19 11:00 Resp 18 11/07/19 11:00 BP 133/82 11/07/19 11:00 Pulse Ox 96 11/07/19 11:00 Intake & Output 11/06/19 11/07/19 11/07/19 18:59 06:59 18:59 Intake Total 245.054 236.899 Output Total 200 400 Balance 45.054 -163.101 Weight 136.078 kg 104.4 kg Intake: IV 230 Intake, IV Titration 245.054 6.899 Amount Heparin Sod,Pork in 0.45% 245.054 6.899 NaCl 25,000 unit In 0.45 % NaCl 1 250ml.bag @ 7.35 UNITS/KG/HR 10.002 mls/ hr IV .Q24H [facility] Rx#: [id number] Output: Urine 200 400 Other: # Voids 1 - Exam Constitutional: No acute distress, conversant, pleasant Eyes:Anicteric sclerae, moist conjunctiva, no lid-lag, PERRLA, ENMT: Oropharynx clear, no erythema, exudates Neck: Supple, FROM, no masses, or JVD, No carotid bruits, No thyromegaly Lungs: Clear to auscultation, Clear to percussion, Normal respiratory effort, no accessory muscle use Cardiovascular: Heart regular in rate and rhythm, No murmurs, gallops, or rubs, No peripheral edema Abdominal: Soft, Nontender, no guarding, rebound or rigidity, Normoactive bowel sounds, No hepatomegaly, No splenomegaly, No palpable mass Skin: Normal temperature, tone, texture, turgor, no induration, No subcutaneous nodules, No rash, lesions, No ulcers Extremities: No digital cyanosis, No clubbing, Pedal pulses intact and symmetrical, Radial pulses intact and symmetrical, No calf tenderness Psychiatric: Alert and oriented to person, place and time, appropriate affect, intact judgement Neuro: Muscles Strength 5/5 in all 4 extremities, Sensation to light touch deya sly present throughout, Cranial nerves II-XII grossly intact, no focal sensory deficits - Labs CBC & Chem 7: 11/07/19 05:53 11/06/19 10:32 Labs: Abnormal Lab Results - Last 24 Hours (Table) 11/07/19 11/07/19 Range/Units 00:21 05:53 APTT 36.1 H 42.0 H (22.0-30.0) sec Assessment and Plan Plan: Chest pain due to unstable angina Hypertensive urgency, currently resolved GERD BPH Check lipid profile Encouraged to eat healthy diet and exercise Status post heart catheterization with PCI to the RCA. Cardiology following Continue heparin Continue aspirin, metoprolol and Lipitor daily. Echocardiogram has been ordered Rest of medical issues stable, resume meds DVT prophylaxis: [Heparin drip] Discussed with: [Patient and ] Anticipated discharge: [1-2 days] Anticipated discharge place: [Home]
[2019-11-07 14:10] VITALS: BMI 31.1
[2019-11-07 15:43] VITALS: RESP 18
[2019-11-08 06:26] LABS: Basophils % (A) 0 %; Eosinophils # (A) 0.1 k/uL (0-0.7); Eosinophils % (A) 2 %; HCT 45.8 % (39.0-53.0); HGB 15.5 gm/dL (13.0-17.5); Lymphocytes # (A) 2.2 k/uL (1.0-4.8); Lymphocytes % (A) 23 %; MCH 28.6 pg (25.0-35.0); MCHC 33.8 g/dL (31.0-37.0); MCV 84.8 fL (80.0-100.0); Mean Platelet Volume 6.8; Monocytes # (A) 0.6 k/uL (0-1.0); Monocytes % (A) 6 %; Neutrophils # (A) 6.5 k/uL (1.3-7.7); Neutrophils % (A) 67 %; Platelet Count 264 k/uL (150-450); RBC 5.41 m/uL (4.30-5.90); RDW 13.1 % (11.5-15.5); WBC 9.6 k/uL (3.8-10.6)
[2019-11-08 06:32] LABS: INR 0.9 (<1.2); Prothrombin Time 9.7 sec (9.0-12.0)
[2019-11-08 06:39] LABS: African American GFR (CKD) >90 (>60 ml/min/1.73 sqM); Cholesterol 167 mg/dL (<200); HDL Cholesterol 35 mg/dL (40-60); LDL Cholesterol,Calculated 105 mg/dL (0-99); Non-African American GFR(CKD) 87 (>60 ml/min/1.73 sqM); Triglycerides 136 mg/dL (<150)
[2019-11-08] MEDS: PANTOPRAZOLE 40 MG TABLET PO SCH (06:48)
[2019-11-08] MEDS ORDERED: CLOPIDOGREL 75 MG TAB PO SCH (09:00)
[2019-11-08] MEDS: ATORVASTATIN 80 MG TAB PO SCH (09:17)
[2019-11-08] MEDS: TAMSULOSIN 0.4 MG CAP.ER.24H PO SCH (09:17)
[2019-11-08] MEDS: METOPROLOL TARTRATE 50 MG TAB PO SCH (09:17)
[2019-11-08] MEDS: LOSARTAN 50 MG TAB PO SCH (09:17)
[2019-11-08] MEDS: HYDROCHLOROTHIAZIDE 25 MG TAB PO SCH (09:17)
[2019-11-08 11:12] VITALS: TEMP 98.1
--- NOTE | 2019-11-08 12:45 | P.PN ---
Subjective Progress Note Date: 11/08/19 This is a 74-year-old gentleman with history of hypertension, hyperlipidemia, BPH, who had been experiencing exertional symptoms of shortness of breath, had a non-Q-wave myocardial infarction, was taken to the cardiac catheterization lab where he underwent angioplasty and stenting of the right co ronary artery. Patient was seen and examined this morning, overall doing well. Denies any chest pain in his breathing is stable. His blood pressure this morning is running high, 197/63 at 8 AM, repeat blood pressure in the 160 systolic range. We will increase his dose of beta mari. He should be able to be discharged home today from our perspective, to follow-up with Dr. Pfeiffer in the office. Objective - Vital Signs Vital signs: Vital Signs Temp 98.1 F 11/08/19 08:00 Pulse 74 11/08/19 08:00 Resp 18 11/08/19 04:00 BP 197/63 11/08/19 08:00 Pulse Ox 95 11/08/19 08:00 Intake & Output 11/07/19 11/08/19 11/08/19 18:59 06:59 18:59 Intake Total 1106.899 660 360 Output Total 400 375 Balance 706.899 285 360 Weight 104.4 kg 138.8 kg Intake: IV 230 Intake, IV Titration 456.899 660 Amount Heparin Sod,Pork in 0.45% 6.899 NaCl 25,000 unit In 0.45 % NaCl 1 250ml.bag @ 7.35 UNITS/KG/HR 10.002 mls/ hr IV .Q24H [facility] Rx#: [id number] Sodium Chloride 0.9% 1, 450 660 000 ml @ 75 mls/hr IV . [id number] [facility] Rx#:[id number] Oral 420 360 Output: Urine 400 375 Other: Voiding Method Toilet # Voids 1 2 - Exam PHYSICAL EXAMINATION: GENERAL: 74-year-old gentleman in no acute distress at the time of my examination HEENT: Head is atraumatic, normocephalic. Pupils equal, round. Sclera anicteric. Conjunctiva are clear. Mucous membranes of the mouth are moist. Neck is supple. There is no elevated jugular venous pressure. No carotid bruit is heard. HEART EXAMINATION: Heart S1, S2 normal. No murmur or gallop heard. CHEST EXAMINATION: Lungs are clear to auscultation and precussion. No chest wall tenderness is noted on palpation or with deep breathing. ABDOMEN: Soft, obese, nontender. Bowel sounds are heard. No organomegaly noted. EXTREMITIES: 2+ peripheral pulses with trace evidence of peripheral edema and no calf tenderness noted. Right radial site clean and dry, good distal pulse. NEUROLOGIC patient is awake, alert and oriented 3 . - Labs CBC & Chem 7: 11/08/19 06:02 11/08/19 06:02 Labs: Abnormal Lab Results - Last 24 Hours (Table) 11/08/19 Range/Units 06:02 LDL Cholesterol, Calc 105 H (0-99) mg/dL HDL Cholesterol 35 L (40-60) mg/dL Assessment and Plan Plan: Assessment and plan #1 non-Q-wave IN, status post angioplasty and stenting of the RCA #2 hypertension #3 hyperlipidemia #4 obesity Plan We will increase the patient's dose of beta mari for more optimal blood pressure control, he may be able to be discharged home today from our perspective. Follow-up appointment in the office with Dr. Pfeiffer post discharge. DNP note has been reviewed, I agree with a documented findings and plan of care. Patient was seen and examined.
--- NOTE | 2019-11-08 13:46 | P.DS ---
Providers Date of admission: 11/07/19 15:40 Expected date of discharge: 11/08/19 Attending physician: Lesley Bautista MD Consults: 11/06/19 12:33 Consult Physician Urgent Consulting Provider: Frannie Andre Consult Reason/Comments: acute chest pain, possible acs Do you want consulting provider notified?: Yes 11/07/19 08:58 Consult Physician Routine Consulting Provider: Frannie Andre Consult Reason/Comments: Post Interventional patient Do you want consulting provider notified?: Already Contacted Primary care physician: [facility] Course: 74-year-old male with PMH of hypertension presents the ED for chest pain for the past month. His pain was initially intermittent. Patient reported the pain to occur 1-2 times a week lasting 4-5 hours at a time. The night before admission patient started experiencing chest pain after dinner. He described the pain as all across his chest, 8 out of 10 in severity, pressure-like in sensation. He denied any alleviating or aggravating factors. His chest pain was associated with shortness of breath. He is a nonsmoker. When his symptoms persisted, he went to go see his PCP who prompted him to come to the ED. He denied any lower extremity edema, nausea or vomiting, fever or chills, cough, palpitations, changes in urination or bowel habits. No changes in appetite or weight. No dizziness, numbness/weakness/tingling of the extremities. In the emergency department he was found to be in hypertensive urgency with BP of 199/111. CBC and coagulation panel was negative. CMP showed bicarbonate 32, glucose 130. Troponin was 0.017, EKG showing normal sinus rhythm. BNP was 97, chest x-ray showing vascular congestion without edema. Patient is started on a heparin drip for unstable angina and admitted for further evaluation and management. Patient was seen by cardiology, had heart catheterization which showed mid RCA stenosis, he had drug eluding stent placed. Patient did well after the heart catheterization. No recurrent chest pain. He was started on dual antiplatelet therapy by cardiology. He will be on aspirin and Plavix. His blood pressure was slightly on the higher side throughout the hospitalization. Metoprolol dose was escalated. Lipid profile was consistent with mild elevation in LDL and decrease in HDL. Patient will advised on healthy diet and exercise. He will follow with Dr. Poe as an outpatient. He will be discharged home in stable condition. Discharge diagnoses #1 non-Q-wave ND, status post angioplasty and stenting of the RCA #2 hypertension #3 hyperlipidemia #4 obesity Time for discharge 35 min Patient Condition at Discharge: Stable Plan - Discharge Summary Discharge Rx Participant: No New Discharge Prescriptions: New Atorvastatin [Lipitor] 80 mg PO DAILY #30 tab Nitroglycerin Sl Tabs [Nitrostat] 0.4 mg SUBLINGUAL Q5M PRN #25 tab PRN Reason: Chest Pain Clopidogrel [Plavix] 75 mg PO DAILY #30 tab Acetaminophen Tab [Tylenol] 650 mg PO Q6HR PRN tab PRN Reason: Mild Pain Or Fever > 100.5 Metoprolol Tartrate [Lopressor] 100 mg PO BID 30 Days #60 tab Continue Tamsulosin [Flomax] 0.4 mg PO DAILY Omeprazole 40 mg PO DAILY Losartan Potassium [Cozaar] 100 mg PO DAILY Hydrochlorothiazide 25 mg PO DAILY Discontinued Simvastatin [Zocor] 20 mg PO DAILY Discharge Medication List Tamsulosin [Flomax] 0.4 mg PO DAILY 09/17/18 [History] Omeprazole 40 mg PO DAILY 10/13/19 [History] Hydrochlorothiazide 25 mg PO DAILY 11/06/19 [History] Losartan Potassium [Cozaar] 100 mg PO DAILY 11/06/19 [History] Acetaminophen Tab [Tylenol] 650 mg PO Q6HR PRN tab 11/08/19 [Rx] Atorvastatin [Lipitor] 80 mg PO DAILY #30 tab 11/08/19 [Rx] Clopidogrel [Plavix] 75 mg PO DAILY #30 tab 11/08/19 [Rx] Metoprolol Tartrate [Lopressor] 100 mg PO BID 30 Days #60 tab 11/08/19 [Rx] Nitroglycerin Sl Tabs [Nitrostat] 0.4 mg SUBLINGUAL Q5M PRN #25 tab 11/08/19 [Rx] Follow up Appointment(s)/Referral(s): Mahad Poe MD [STAFF PHYSICIAN] - 11/15/19 4:30 pm (Friday -later appointment cancelled) Amado Torres MD [Primary Care Provider] - 1-2 days Patient Instructions/Handouts: After Radial Heart Catheterization (GEN)
[2019-11-08 15:00] VITALS: BP 165/76; PULSE 66
[2019-11-08] MEDS ORDERED: METOPROLOL TARTRATE 50 MG TAB PO SCH (16:00)
== END 2019-11-08 14:55 | disposition home or self-care (01) | DRG 247 ==
LOC: EC 10:14 → 3SCARD 12:32 → OBSVTOIN 11-07 15:40
PROVIDERS: ADMIT Family Medicine; ATTEND Family Medicine
PROC: 027034Z Dilation of Coronary Artery, One Artery with Drug-eluting Intraluminal Device, Percutaneous Approach (ICD-10-PCS; principal; 2019-11-07 08:04)
PROC: B2111ZZ Fluoroscopy of Multiple Coronary Arteries using Low Osmolar Contrast (ICD-10-PCS; principal; 2019-11-07 08:04)
PROC: 4A023N7 Measurement of Cardiac Sampling and Pressure, Left Heart, Percutaneous Approach (ICD-10-PCS; principal; 2019-11-07 08:04)
DX: I21.4 Non-ST elevation (NSTEMI) myocardial infarction (principal); Z68.41 Body mass index [BMI] 40.0-44.9, adult; E66.01 Morbid (severe) obesity due to excess calories; I16.0 Hypertensive urgency; I10 Essential (primary) hypertension; I25.110 Atherosclerotic heart disease of native coronary artery with unstable angina pectoris; I25.84 Coronary atherosclerosis due to calcified coronary lesion; K21.9 Gastro-esophageal reflux disease without esophagitis; N40.0 Benign prostatic hyperplasia without lower urinary tract symptoms; E78.5 Hyperlipidemia, unspecified; I25.2 Old myocardial infarction; F41.9 Anxiety disorder, unspecified; G44.209 Tension-type headache, unspecified, not intractable; M19.90 Unspecified osteoarthritis, unspecified site; Z79.899 Other long term (current) drug therapy; Z71.3 Dietary counseling and surveillance; Z85.828 Personal history of other malignant neoplasm of skin
CPT/HCPCS: 36415; 71046; 80053; 80061; 82565; 83735; 83880; 84484; 85025; 85610; 85730; 93005; 93306; 93458; 96365; 96366; 96376; 99285

== ENCOUNTER 2024-06-17 05:50 | Day surgery (SDC) | payer MEDICARE ==
[2024-06-11 13:47] VITALS: BMI 23.3
[2024-06-17] MEDS: SODIUM CHLORIDE 0.9% 500 ML 500 ML IV ONE ×2 (06:32→08:13)
[2024-06-17 06:35] VITALS: RESP 16; TEMP 98.4
[2024-06-17 07:24] LABS: African American GFR (CKD) 65 (>60 ml/min/1.73 sqM); Anion Gap 5 mmol/L; Blood Urea Nitrogen 23 mg/dL (9-20); Calcium 9.3 mg/dL (8.4-10.2); Carbon Dioxide 32 mmol/L (22-30); Chloride 104 mmol/L (98-107); Glucose 100 mg/dL (74-99); Non-African American GFR(CKD) 56 (>60 ml/min/1.73 sqM); Potassium 3.6 mmol/L (3.5-5.1); Sodium 141 mmol/L (137-145)
[2024-06-17] MEDS: BENZOCAINE SPRAY 1 EACH MM ONE (08:01)
[2024-06-17] MEDS: MIDAZOLAM 2 MG/2 ML VIAL IVP ONE (08:02)
[2024-06-17] MEDS: fentaNYL (PF) 50 MCG/1 ML VIAL IVP ONE (08:03)
--- NOTE | 2024-06-17 09:08 | ECHOT ---
TRANSESOPHAGEAL ECHOCARDIOGRAM INDICATION: Severe aortic stenosis. PROCEDURE NOTE: After obtaining informed consent, transesophageal echocardiogram is performed in left lateral position using an Omniplane probe. Local and IV sedation were obtained with 2 mg of Versed and 50 mcg of fentanyl. The patient tolerated the procedure well without any obvious immediate complications. Total sedation time was 10 minutes. FINDINGS: 1. Aortic valve: Aortic valve is a 3-leaflet valve, appears heavily calcified and shows severe restriction in leaflet mobility. By planimetry, the calculated valve area is between 0.5 to 0.8 squared cm consistent with severe aortic stenosis. There is mild aortic regurgitation noted. There is mild mitral and mild tricuspid regurgitation noted. Interatrial septum, there is no evidence of xhdi-nw-lmkly shunt by color-flow Doppler or ywweu-om-mrjr shunt by agitated saline contrast study. 2. Left atrium appears enlarged. Right atrium, right ventricle seen within normal limits. 3. Left ventricle has normal size and systolic function. 4. Ascending aorta appears mildly dilated. CONCLUSION: 1. Severe aortic stenosis involving a tricuspid aortic valve that is heavily calcified. 2. Normal LV systolic function. PLAN: The patient has symptomatic aortic stenosis and a recent cardiac catheterization at [facility] did not reveal significant obstructive CAD and he does not require revascularization. The patient will be referred to [place] for TAVR. MMODL / IJN: [id number] /
[2024-06-17 09:13] VITALS: PULSE 64
[2024-06-17 09:51] VITALS: BP 162/79
== END 2024-06-17 09:40 | disposition home or self-care (01) ==
LOC: CATHCVL 05:50
PROVIDERS: ATTEND Internal Medicine Cardiovascular Disease
CPT/HCPCS: 80048; 93312; 93320; 93325

== ENCOUNTER 2024-06-29 06:50 | Outpatient (CLI) | payer MEDICARE ==
[2024-06-29 07:39] VITALS: BP 202/91; PULSE 59; RESP 94; TEMP 98.7
[2024-06-29 07:39] LABS: Basophils % (A) 0 %; Eosinophils # (A) 0.5 k/uL (0-0.7); Eosinophils % (A) 5 %; HCT 39.1 % (39.0-53.0); HGB 12.9 gm/dL (13.0-17.5); Lymphocytes # (A) 1.5 k/uL (1.0-4.8); Lymphocytes % (A) 16 %; MCH 28.6 pg (25.0-35.0); MCV 86.6 fL (80.0-100.0); Monocytes # (A) 0.7 k/uL (0-1.0); Monocytes % (A) 8 %; Neutrophils # (A) 6.4 k/uL (1.3-7.7); Neutrophils % (A) 69 %; Platelet Count 252 k/uL (150-450); RBC 4.52 m/uL (4.30-5.90); RDW 13.1 % (11.5-15.5); WBC 9.2 k/uL (3.8-10.6)
[2024-06-29 07:57] LABS: Partial Thromboplastin Time 26.2 sec (22.0-30.0); Prothrombin Time 11.1 sec (10.0-12.5)
[2024-06-29 07:58] LABS: ALT 15 U/L (4-49); AST 23 U/L (17-59); African American GFR (CKD) 80 (>60 ml/min/1.73 sqM); Albumin 4.1 g/dL (3.5-5.0); Albumin/Globulin Ratio 1.5; Alkaline Phosphatase 71 U/L (38-126); Anion Gap 8 mmol/L; Bilirubin,Unconjugated 0.7 mg/dL (0.0-1.1); Blood Urea Nitrogen 20 mg/dL (9-20); Calcium 9.3 mg/dL (8.4-10.2); Carbon Dioxide 32 mmol/L (22-30); Chloride 101 mmol/L (98-107); Globulin 2.7 g/dL; Glucose 107 mg/dL (74-99); Magnesium 1.6 mg/dL (1.6-2.3); Non-African American GFR(CKD) 69 (>60 ml/min/1.73 sqM); Potassium 3.7 mmol/L (3.5-5.1); Sodium 141 mmol/L (137-145); Total Protein 6.8 g/dL (6.3-8.2)
[2024-06-29 08:05] LABS: NT-Pro-B-Type Natriuretic Pept 1770 pg/mL
[2024-06-29] MEDS: METOPROLOL SUCCINATE (ER) 50 MG TAB.ER.24H PO STA (08:09)
[2024-06-29] MEDS: carvediloL 12.5 MG TAB PO SCH (08:10)
[2024-06-29] MEDS: LOSARTAN 50 MG TAB PO STA (08:10)
[2024-06-29 09:24] LABS: Appearance,Urine Clear (Clear); Bilirubin,Urine Negative (Negative); Blood,Urine Negative (Negative); Color,Urine Colorless; Glucose,Urine (UA) Negative (Negative); Ketones,Urine Negative (Negative); Leukocyte Esterase,Urine Negative (Negative); Nitrite,Urine Negative (Negative); Protein,Urine Negative (Negative); Specific Gravity,Urine 1.009 (1.001-1.035)
--- NOTE | 2024-06-29 13:15 | CT ---
EXAMINATION TYPE: CT TAVR Planning DATE OF EXAM: 06/29/2024 CLINICAL INDICATION: Male, 79 years old with history of TAVR testing; pre-op COMPARISON: CT chest 10/14/2019, CT abdomen and pelvis 03/02/2018 TECHNIQUE: CT scan of the Neck, chest, abdomen and pelvis is performed with IV Contrast, patient injected with 1 25cc mL of Isovue 370. Helical imaging obtained through the chest, abdomen and pelvis during arterial phase dynamic administ ration of radiographic contrast intravenously. CT DLP: 2912.1 mGycm Automated Exposure Control for Dose Reduction was Utilized. FINDINGS: See report from [employer] regarding preprocedural planning HEART AND PERICARDIUM: The heart is moderately enlarged. There is no pericardial effusion. Mild coron hipolito artery calcifications present. Thickening and calcification of aortic valve present. AV Calcification Severity: Moderate/Severe ARTERIAL VASCULATURE: After the administration of contrast, the aortic arch and thoracic aorta demonstrate a normal course and caliber. The pulmonary outflow tract appears within normal limits for size. The thoracic aorta i s normal in course and caliber. There is no evidence of aortic dissection, aneurysm or acute aortic i njury. Great arch vessels patent and normal in course and caliber. PULMONARY ARTERIAL VASCULATURE: Normal caliber. NECK AND THYROID: Retropharyngeal course of the bilateral internal carotid arteries. Bilateral caroti d bulb calcifications suggesting at least mild stenosis of the origin of the bilateral internal carot id arteries. CHEST: LUNGS: No acute area of infiltrative or consolidative change. Calcific granuloma within the posterior right upper lobe. LARGE AIRWAYS: Central airways are patent. PLEURAL: No pleural effusion or thickening. No pneumothorax. MEDIASTINUM AND ADAN: Calcified lymph nodes are present. SOFT TISSUES/LYMPH NODES: Unremarkable.Normal. MUSCULOSKELETAL: No acute osseous abnormalities ABDOMEN/PELVIS: Please note arterial phase of the imaging limits detailed evaluation of the solid abdominal organs. ABDOMEN LIVER: Diffusely hypoattenuating parenchyma consistent with steatosis. Punctate calcified granuloma. Again mildly enlarged liver measuring 21.7 cm in CC dimension. GALLBLADDER AND BILE DUCTS: Gallstone identified within the neck of the gallbladder. No biliary ducta l dilatation. No surrounding inflammatory changes. PANCREAS: Unremarkable. SPLEEN: Punctate calcified granuloma. ADRENAL GLANDS: Unremarkable. KIDNEYS AND URETERS: No evidence of hydronephrosis or renal calculus. Right renal lower pole cyst ernst suring up to 2.2 cm. Exophytic left upper pole 2.0 cm renal cyst. PELVIS BLADDER: Unremarkable REPRODUCTIVE: Coarse calcifications of the prostate gland are identified. ABDOMEN & PELVIS STOMACH AND BOWEL: Stomach and duodenum are unremarkable. No focal bowel wall thickening or surroundi ng inflammatory changes. The appendix is within normal limits. Sigmoid diverticulosis. Redundant sigm oid colon. No evidence of bowel obstruction. PERITONEUM/RETROPERITONEUM: No evidence of pneumoperitoneum or free fluid. VASCULATURE: No evidence of aortic aneurysm. MUSCULOSKELETAL: No acute osseous abnormalities. Degenerative disc disease LYMPH NODES: No gross evidence for lymphadenopathy. SOFT TISSUE/ABDOMINAL WALL: Unremarkable Other Lines/Tubes/Devices/Hardware: None IMPRESSION: Moderate/Severe calcifications of the aortic valve. See report from [employer] regarding preprocedural planning [facility], , 06/29/2024 1:13 PM
[2024-06-29 17:27] LABS: Chol/HDL Ratio 4.46 Ratio; LDL Cholesterol,Calculated 71.9 mg/dL (0.0-131.0)
== END 2024-06-29 13:32 | disposition home or self-care (01) ==
LOC: LABWHC1 06:50
PROVIDERS: ATTEND Thoracic Surgery (Cardiothoracic Vascular Surgery)
CPT/HCPCS: 36415; 71275; 74174; 80053; 80061; 81003; 82248; 83036; 83735; 83880; 84443; 85025; 85610; 85730; 87086; 94150

== ENCOUNTER → 2024-07-15 | Outpatient (CLI) | payer MEDICARE | END | disposition home or self-care (01) | LOC: LABWHC1 12:37 | PROVIDERS: ATTEND Thoracic Surgery (Cardiothoracic Vascular Surgery) | DX: I35.0 Nonrheumatic aortic (valve) stenosis (principal) | CPT/HCPCS: 86850; 86900; 86901 ==

== ENCOUNTER 2024-07-21 09:49 | Inpatient (IN) | payer MEDICARE ==
[~2024-07-21 09:49] MED LIST changes: +CLEVIDIPINE BUTYRATE 25 MG in EMPTY BAG 1 BAG IV PRN; +ELECTROLYTE-A SOLUTION 1,000 ML with POTASSIUM CHLORIDE 100 MEQ, MAGNESIUM SULFATE 16 M... IV PRN; +INSULIN REGULAR 100 UNIT in SODIUM CHLORIDE 0.9% 100 ML IV PRN; -LACTATED RINGERS 1,000 ML IV SCH; -LIDOCAINE 1% 20 ML VIAL (10MG/ML) FOR IV START INTRADERMA PRN; +NITROGLYCERIN-D5W PMX 25 MG/250 ML BTL IV PRN; +PROTAMINE SULFATE 250 MG in EMPTY BAG 1 BAG IV PRN; +SODIUM CHLORIDE 0.9% 500 ML 500 ML INTRAARTER PRN; +TRANEXAMIC ACID 2,000 MG in SODIUM CHLORIDE 0.9% 80 ML IV PRN
[2024-07-21 10:13] LABS: Glucose,Whole Blood 112 mg/dL (70-110)
[2024-07-21] MEDS: IV FLUID CONTINUATION 1,000 ML IV ONE ×2 (10:19→15:00)
[2024-07-21] MEDS: METOPROLOL TARTRATE 25 MG TAB PO ONE (10:25)
[2024-07-21] MEDS: ASPIRIN 325 MG TAB PO ONE (10:25)
[2024-07-21] MEDS: CLOPIDOGREL 75 MG TAB PO ONE (10:25)
[2024-07-21] MEDS: ATORVASTATIN 10 MG TAB PO ONE (10:25)
[2024-07-21] MEDS ORDERED: PROPOFOL 10 MG/ML 20 ML VIAL IV ONE (11:30)
[2024-07-21] MEDS ORDERED: SUCCINYLCHOLINE CHLORIDE 200 MG/10 ML VIAL IV ONE (11:30)
[2024-07-21] MEDS ORDERED: GLYCOPYRROLATE 0.2 MG/ML 2 ML VIAL ONE (11:30)
[2024-07-21] MEDS ORDERED: SUGAMMADEX SODIUM 200 MG/2 ML SDV IV ONE (11:30)
[2024-07-21] MEDS ORDERED: PROTAMINE SULFATE 10 MG/ML 5 ML VIAL ONE (11:30)
[2024-07-21] MEDS ORDERED: ROCURONIUM 10 MG/ML (5 ML VIAL) IV ONE (11:30)
[2024-07-21] MEDS ORDERED: fentaNYL (PF) 50 MCG/ML 2 ML AMP ONE (11:30)
[2024-07-21] MEDS ORDERED: LABETALOL 5 MG/ML VIAL MDV ONE (11:30)
[2024-07-21] MEDS ORDERED: MIDAZOLAM 2 MG/2 ML VIAL ONE (11:30)
[2024-07-21] MEDS ORDERED: LIDOCAINE 1% INJ 10MG/ML (20 ML MDV) ONE (11:30)
[2024-07-21] MEDS ORDERED: HEPARIN SODIUM,PORCINE 10,000 UNIT/ML 1 ML VIAL ONE (11:30)
--- NOTE | 2024-07-21 13:08 | P.ANPRN ---
Procedure Note - Anesthesia - GENEVIEVE Intraop Pre Bypass GENEVIEVE Intraop - Anesthesia Indication: transcatheter aortic valve replacement Date of Procedure: 07/21/24 Pre-operative Diagnosis: severe aortic stenosis Post-operative Diagnosis: same Surgeon: Ever Garces Ejection Fraction: Normal Regional Wall Motion Abnormalities: None Left Ventricle Hypertrophy: Yes R. Ventricle Function: Normal Aortic Valve: severely calcified aortic valve seen.severe aortic stenosis noted. Peak g radient 70 mmHg and mean gradient 45 mmHg. Aortic Stenosis: Severe Aortic Regurgitation: Mild (to moderate) Mitral Stenosis: None Mitral Regurgitation: Mild Tricuspid Stenosis: None Tricuspid Regurgitation: Mild Pulmonic Stenosis: None R. Atrial Dilation: Yes R. Atrial PFO: No L. Atrial Dilation: No Aortic Dissection: No Plural Effusion: None - GENEVIEVE Intraop Post Bypass GENEVIEVE Intraop Post Bypass Procedure Performed: transcatheter aortic valve replacement Left Ventricle: 55-60% Ejection Fraction: Normal Regional Wall Motion Abnormalities: None R. Ventricle Function: Normal Aortic Valve: prosthetic aortic valve is in situ. appears to be seated well. Trace paravalvular regurgitation seen. Peak gradient across the prosthetic valve 15 mmHg and knees 8 mmHg. Mitral Valve: Unchanged Tricuspid: Unchanged Pulmonic: Unchanged Aortic Dissection: No
--- NOTE | 2024-07-21 13:52 | P.OP ---
Date of Procedure: 07/21/24 Preoperative Diagnosis: Symptomatic calcific tricuspid aortic valvular stenosis Postoperative Diagnosis: Same Procedure(s) Performed: Percutaneous transfemoral transcatheter aortic valve replacement with 34 mm evolute flex plus prosthesis Implants: 34 mm Evolut flex plus TAVR prosthesis Anesthesia: GETOlivia Surgeon: Ever Garces (Cardiovascular surgeon) Incendiary Powder Mixer #1: Mahad Poe (First interventional cardiology) Incendiary Powder Mixer #2: Norberto Carballo (Second hammer driver) Estimated Blood Loss (ml): 20 IV fluids (ml): 1,000 Pathology: none sent Condition: stable Disposition: PACU Indications for Procedure: 79-year-old male with symptomatic severe aortic stenosis. He was evaluated in the high risk valve clinic and felt to be most appropriate for TAVR. Operative Findings: 75 mm peak to peak gradient across the aortic valve. Valve was implanted with depths of 3 on the right and 5 on the left. There was trivial paravalvular leak. Completion angiography of the femoral artery was excellent. Description of Procedure: Patient was brought to the cardiac catheterization laboratory and placed supine on the table. General anesthesia was induced. Patient was intubated and GENEVIEVE probe was placed. The anterior torso and bilateral groins were sterilely prepped and draped. Bila evolute flex plus valve was loaded on the back table and brought up on the field. It was checked under fluoroscopy. Teral femoral arterial access was obtained under ultrasound guidance. On the right a 7 Bhutanese sheath was placed. On the left a long 6 Bhutanese sheath was placed and advanced into the descending thoracic aorta. Through this a pigtail catheter was advanced into the noncoronary sinus of Valsalva. Under ultrasound guidance the left femoral vein was accessed and an 8 Bhutanese sheath placed. Through this a transvenous pacemaker was advanced into the right ventricle and tested. On the right and guidewire was threaded and the 7 Bhutanese sheath was removed and 2 Perclose devices were placed and an long 8 Bhutanese sheath was then placed. This was exchanged over a stiff wire for a 18 Bhutanese Cook sheath. This proceeded w ithout event. The patient was systemically heparinized. Aortic valve was crossed from the right groin and a pigtail catheter placed at the apex of the left ventricle. Transvalvular gradients were measured. A 34 mm Medtronic evolute flex plus valve was loaded on the back table. It was brought up on the field and checked under fluoroscopy. It was returned to the back table. Stiff wire was placed through the pigtail at the apex of the ventricle and over this a 23 mm true balloon was advanced across the aortic valve. Aortic balloon valvuloplasty was performed under rapid ventricular pacing using the 23 balloon. On completion, balloon was withdrawn maintaining the wire at the apex of the ventricle. Evolute valve was now brought back up on the field and the 18 Bhutanese sheath was exchanged for the evolute valve delivery system. This was advanced through the vascular tree around the aortic arch and across the aortic valve. The valve was deployed under rapid ventricular pacing with deployment levels of 3 on the right and 5 on the left. On completion of the deployment the delivery system and wire were pulled back into the descending thoracic aorta. The valve was evaluated with the GENEVIEVE. It was well-expanded by fluoroscopy. This was confirmed on GENEVIEVE. There was trivial paravalvular leak. There was no significant gradient across the valve. Heparin was reversed with protamine. The valve delivery system was removed and the 2 Perclose devices used to seal the right groin. Completion angiography was performed and showed good flow with no narrowing and no leak. Temporary pacer and venous sheath and left arterial sheath were all removed. Patient was extubated and transferred to recovery area in stable condition.
[2024-07-21 14:13] LABS: African American GFR (CKD) >90 (>60 ml/min/1.73 sqM); Anion Gap 5 mmol/L; Blood Urea Nitrogen 21 mg/dL (9-20); Calcium 8.8 mg/dL (8.4-10.2); Carbon Dioxide 28 mmol/L (22-30); Chloride 106 mmol/L (98-107); Glucose 120 mg/dL (74-99); HGB 13.1 gm/dL (13.0-17.5); MCH 28.7 pg (25.0-35.0); MCHC 34.4 g/dL (31.0-37.0); MCV 83.3 fL (80.0-100.0); Mean Platelet Volume 7.3; Non-African American GFR(CKD) 85 (>60 ml/min/1.73 sqM); Platelet Count 219 k/uL (150-450); Potassium 3.5 mmol/L (3.5-5.1); RBC 4.56 m/uL (4.30-5.90); RDW 13.7 % (11.5-15.5); Sodium 139 mmol/L (137-145); WBC 10.6 k/uL (3.8-10.6)
--- NOTE | 2024-07-21 14:14 | P.PCN ---
Date of Procedure: 07/21/24 Operative Findings: TRANSCATHETER AORITC VALVE REPLACEMENT OPERATIVE REPORT PROCEDURE PERFORMED: 1. Percutaneous Aortic Valve Implantation using a 34 mm Evolut flex plus 2. Transesophageal echocardiography (performed by anesthesia) 3. Ultrasound guided access and repair of bilateral femoral artery access site by Perclose closure device. 4. Placement of temporary pacemaker wire. 5. Aortic root angiography INDICATIONS: 1. 71 year-old with a history of severe symptomatic aortic valve stenosis. The patient was experiencing shortness of breath consistent with NYHA class II PERFORMING PHYSICIANS: 1. Mahad Poe MD Interventional Cardiology. 2. Norberto Carballo DO Interventional Cardiology 3. Ever Garces MD, Cardiothoracic Surgeon. SEDATION: General anesthesia provided by anesthesia, see separate note APPROACH: Bilateral femoral artery via percutaneous approach PROCEDURE DESCRIPTION: The patient was discussed at valve clinic with multidisciplinary approach with cardiothoracic surgeon as well as outside energy sales representatives and thought better treated with TAVR. Risks, benefits, and alternatives of the procedure had been explained to the patient who understood the risks and agreed to proceed. After consents were obtained, patient was brought to the transcatheter aortic valve implantation room in the cardiac wharf labourer and general anesthesia was provided by the anesthesiologist (see separate report). Once full body sterile prep was performed, left common femoral vein was cannulated using micropuncture technique under ultrasound guidance a micropuncture wire passed easily then we placed a 23 cm sheath 6 Polish at the left common femoral vein and subsequently under fluoroscopy guidance a balloontipped pacer wire was advanced to the right ventricle. Pacing threshholds were checked and deemed appropriate. Next the left femoral artery waw accessed using a modified Seldinger technique, ultra sound guidance and micropuncture technique. A 6 Polish Rabi sheath was placed in the left femoral artery. Next, a 6-Polish pigtail catheter was advanced into the aorta and positioned in the aortic root, aortic root angiography was performed to determine optimal deployment angle. The right femoral artery was accessed using modified Seldinger technique, micropuncture technique and under direct ultrasound guidance. Femoral angiogram was done showing access in the common femoral artery and a 6Fr sheath was placed. Next preclose technique was performed using a two Perclose. Next a 0.035 Safari wire was placed in the Aorta via a AL-1 catheter. A 14 Fr Fork sheath was placed. Next a 6F- AL1 catheter was advanced over a wire to the aortic root. A straight wire was advanced through the catheter and used to cross the severely stenotic valve. The AL1 was then exchanged for a 6Fr pigtail catheter and pressure measurements were obtained. The 0.035 Lunderquist wire was then positioned in the apex. We predilated using 22 mm balloon. Next a 34 mm Corevalve Evolut-Pro Plus was advanced. The valve was then positioned across the aortic valve and confirmed with aortic root angiography. [The valve was initially partially deployed however needed repositioning and therefore was recaptured.] The valve was then deployed in proper position using slow deployment and with rapid pacing in conjuncture with aortic root angiography and GENEVIEVE. The delivery system was withdrawn back into the arch and an aortic root injection in conjunction with GENEVIEVE demonstrated a satisfactory result. There was mild para valvular leak. There was no evidence of any other significant abnormalities. The preclose Perclose was then deployed in the right femoral artery and hemostasis was achieved. . The left femoral angiogram demonstrated an arteriotomy in the common femoral artery and this was repaired using a 6F angioseal device with complete hemostasis. The temporary venous pacemaker was sutured in place. The patient was then transported to the ICU in hemodynamically stable condition, requiring no pressor support. COMPLICATIONS: None RECOMMENDATIONS: The patient will be monitored in the ICU for hemodynamic and electrical stability. Patient will be on aspirin and Plavix.
--- NOTE | 2024-07-21 14:42 | XR ---
EXAMINATION TYPE: XR chest 1V portable DATE OF EXAM: 07/21/2024 1:54 PM COMPARISON: None. CLINICAL INDICATION: Male, 79 years old with history of TAVR POSTOP, TECHNIQUE: XR chest 1V portable view(s) obtained. FINDINGS: The heart size is normal. The pulmonary vasculature is normal. Patchy infiltrates in the perihilar and upper lung fraire. Correlate for pneumonia. PICC line enters on the left with tip in the region of the superior vena cava. IMPRESSION: 1. Patchy bilateral lung infiltrates. Correlate for pneumonia. Consider atypical pneumonia. [facility], , 07/21/2024 2:39 PM
[2024-07-21] MEDS: ceFAZolin 3 GM in SODIUM CHLORIDE 0.9% 100 ML IVPB ONE (16:00)
[2024-07-21] MEDS: LACTATED RINGERS 1,000 ML IV SCH ×2 (16:00→17:42)
[2024-07-21] MEDS ORDERED: ACETAMINOPHEN TAB 325 MG TAB PO PRN (16:04)
[2024-07-21] MEDS ORDERED: Magnesium Replacement Protocol 1 EACH MISC MISCELLANE PRN (16:04)
[2024-07-21] MEDS ORDERED: Potassium Replacement Protocol 1 EACH MISC MISCELLANE PRN (16:04)
[2024-07-21] MEDS ORDERED: IPRATROPIUM-ALBUTEROL 3 ML NEB INHALATION PRN (16:04)
[2024-07-21] MEDS: LOSARTAN 50 MG TAB PO SCH (16:28)
[2024-07-21] MEDS: FINASTERIDE 5 MG TAB PO SCH (16:28)
[2024-07-21] MEDS: TAMSULOSIN 0.4 MG CAP.ER.24H PO SCH (16:28)
[2024-07-21] MEDS: ONDANSETRON 4 MG/2 ML VIAL IVP PRN (16:33)
[2024-07-21] MEDS: traZODone HCL 50 MG TAB PO SCH (21:29)
[2024-07-21] MEDS: SENNOSIDES-DOCUSATE SODIUM 1 EACH TAB PO SCH (21:30)
[2024-07-21] MEDS: ceFAZolin 3 GM in SODIUM CHLORIDE 0.9% 100 ML IVPB SCH (21:30)
[2024-07-21] MEDS: QUEtiapine 25 MG TAB PO SCH (21:30)
[2024-07-21] MEDS: HEPARIN SODIUM,PORCINE 5,000 UNIT/ML 1 ML VIAL SQ SCH (23:37)
[2024-07-22] MEDS: PANTOPRAZOLE 40 MG TABLET PO SCH (06:33)
--- NOTE | 2024-07-22 07:50 | XR ---
EXAMINATION TYPE: XR chest 1V portable DATE OF EXAM: 07/22/2024 6:59 AM COMPARISON: None. CLINICAL INDICATION: Male, 79 years old with history of Post Operative Cardiac Surgery, TECHNIQUE: XR chest 1V portable view(s) obtained. FINDINGS: The heart size is enlarged. The pulmonary vasculature is normal. Patchy bilateral lung infiltrates are improving. IMPRESSION: 1. Bilateral lung infiltrates, improved from comparison. [facility], , 07/22/2024 7:48 AM
[2024-07-22 08:01] LABS: Basophils % (A) 0 %; Eosinophils # (A) 0.3 k/uL (0-0.7); Eosinophils % (A) 2 %; HCT 37.4 % (39.0-53.0); HGB 12.5 gm/dL (13.0-17.5); Lymphocytes # (A) 1.3 k/uL (1.0-4.8); Lymphocytes % (A) 11 %; MCH 28.6 pg (25.0-35.0); MCHC 33.6 g/dL (31.0-37.0); MCV 85.1 fL (80.0-100.0); Mean Platelet Volume 6.9; Monocytes # (A) 0.8 k/uL (0-1.0); Monocytes % (A) 7 %; Neutrophils # (A) 9.2 k/uL (1.3-7.7); Neutrophils % (A) 79 %; Platelet Count 211 k/uL (150-450); RBC 4.39 m/uL (4.30-5.90); RDW 13.3 % (11.5-15.5); WBC 11.7 k/uL (3.8-10.6)
[2024-07-22] MEDS: CHLORTHALIDONE 25 MG TAB PO SCH (08:11)
[2024-07-22] MEDS: METOPROLOL SUCCINATE (ER) 50 MG TAB.ER.24H PO SCH (08:11)
[2024-07-22] MEDS: SERTRALINE 100 MG TAB PO SCH (08:11)
[2024-07-22] MEDS: ATORVASTATIN 80 MG TAB PO SCH (08:11)
[2024-07-22] MEDS: ASPIRIN 81 MG PO SCH (08:11)
[2024-07-22 08:23] LABS: ALT 17 U/L (4-49); AST 30 U/L (17-59); African American GFR (CKD) >90 (>60 ml/min/1.73 sqM); Albumin 3.8 g/dL (3.5-5.0); Alkaline Phosphatase 77 U/L (38-126); Anion Gap 11 mmol/L; Blood Urea Nitrogen 17 mg/dL (9-20); Calcium 9.1 mg/dL (8.4-10.2); Carbon Dioxide 28 mmol/L (22-30); Chloride 100 mmol/L (98-107); Glucose 113 mg/dL (74-99); Magnesium 1.5 mg/dL (1.6-2.3); Non-African American GFR(CKD) 82 (>60 ml/min/1.73 sqM); Potassium 3.4 mmol/L (3.5-5.1); Sodium 139 mmol/L (137-145); Total Bilirubin 0.9 mg/dL (0.2-1.3); Total Protein 6.4 g/dL (6.3-8.2)
[2024-07-22 08:25] LABS: Ionized Calcium 4.8 mg/dL (4.5-5.3)
[2024-07-22 11:12] VITALS: BP 147/74; PULSE 57; RESP 18; TEMP 98.6
[2024-07-22 11:15] VITALS: BMI 36.5
--- NOTE | 2024-07-23 10:21 | P.DS ---
Providers Date of admission: 07/21/24 09:49 Expected date of discharge: 07/22/24 Attending physician: Mahad Poe Consults: 07/21/24 12:52 Consult Physician Routine Consulting Provider: Ever Garces Consult Reason/Comments: post TAVR Do you want consulting provider notified?: Already Contacted Primary care physician: Samuel Ragsdale MD Hospital Course: MEDICAL HISTORY: Calcified aortic valve with severe symptomatic aortic valve stenosis, NYHA class II History of mild CAD with previous myocardial infarction and previous stent to the RCA in 2019 Hypertension Hyperlipidemia Skin cancer BPH Severe obstructive lung disease, FEV1 38% of predicted Lifelong non-smoker PROCEDURE: Percutaneous aortic valve implantation using a 34 mm Evolut FX under GENEVIEVE and fluoroscopy guidance Transesophageal echocardiography performed by anesthesia Ultrasound-guided access and repair of bilateral femoral artery access site by Perclose closure device Placement of temporary pacemaker wire Aortic root angiography HISTORY OF PRESENT ILLNESS: This is a 79-year-old gentleman who follows on an outpatient basis with Dr. Ragsdale for primary care and Dr. Jorge for cardiology. He has a known history of severe aortic stenosis and has been symptomatic with increased exertional dyspnea. He had been referred to structural heart clinic for evaluation for transcatheter aortic valve repla cement after heart catheterization and transesophageal echocardiogram were completed. Echocardiography demonstrated normal systolic function with EF 50- 55%, aortic valve area 0.5 cm with a peak/mean gradient 78/49 mmHg. Heart catheterization showed mild CAD. After workup was completed STS risk score was calculated along with incremental risk and the patient was felt to be moderate risk for surgical aortic valve replacement, however the patient was very clear that he did not want open heart surgery, therefore transcatheter aortic valve replacement was recommended. The usual course of TAVR was discussed in detail the patient, risks and benefits were reviewed, shared decision making between cardiology, surgery, and the patient/family took place, and the patient consented to proceed with the procedure. HOSPITAL COURSE: The patient was brought to the hospital on 07/21/24, was taken to the extended stay area, prepared in the usual fashion, and subsequently taken to the cardiac catheterization laboratory where Dr. Poe and Dr. Garces completed TAVR procedure under general anesthesia with fluoroscopy and GENEVIEVE. The valve was deployed under rapid ventricular pacing and proceeded without event. At the end of the procedure there was no significant gradient, hemodynamics were felt to be acceptable, and there was no evidence of significant perivalvular leak. Upon completion of the procedure the patient was extubated and was transferred to the recovery room and eventually admitted to the cardiac stepdown unit where he was recovered and monitored hemodynamically. His oxygen was titrated down, he was tolerating oral diet, his pain was controlled, follow-up TTE demonstrated normal left ventricular systolic function, no significant gradient or perivalvular leak, and he was ready to be discharged to home on postoperative day #1. He received written and verbal instruction regarding his medications, activity restrictions, signs and symptoms requiring physician notification, and follow-up appointments. Patient Condition at Discharge: Stable Plan - Discharge Summary Discharge Rx Participant: No New Discharge Prescriptions: New Sennosides-Docusate Sodium [Senokot-S] 2 each PO HS PRN tab PRN Reason: Constipation Acetaminophen Tab [Tylenol] 650 mg PO Q4HR PRN tab PRN Reason: Fever And/ Or Mild Pain (1-3) Continue Tamsulosin [Flomax] 0.4 mg PO DAILY Losartan Potassium [Cozaar] 100 mg PO DAILY Atorvastatin [Lipitor] 80 mg PO DAILY #30 tab Metoprolol Succinate (ER) [Toprol XL] 50 mg PO DAILY Finasteride [Proscar] 5 mg PO DAILY Aspirin 81 mg PO DAILY PRN PRN Reason: Per Protocol traZODone HCL [Desyrel] 50 mg PO HS QUEtiapine [SEROquel] 25 mg PO HS Sertraline [Zoloft] 100 mg PO DAILY Chlorthalidone 25 mg PO DAILY Discharge Medication List Tamsulosin [Flomax] 0.4 mg PO DAILY 09/17/18 [History] Losartan Potassium [Cozaar] 100 mg PO DAILY 11/06/19 [History] Atorvastatin [Lipitor] 80 mg PO DAILY #30 tab 11/08/19 [Rx] Chlorthalidone 25 mg PO DAILY 06/11/24 [History] Finasteride [Proscar] 5 mg PO DAILY 06/11/24 [History] Metoprolol Succinate (ER) [Toprol XL] 50 mg PO DAILY 06/11/24 [History] QUEtiapine [SEROquel] 25 mg PO HS 06/11/24 [History] Sertraline [Zoloft] 100 mg PO DAILY 06/11/24 [History] traZODone HCL [Desyrel] 50 mg PO HS 06/11/24 [History] Aspirin 81 mg PO DAILY PRN 07/21/24 [History] Acetaminophen Tab [Tylenol] 650 mg PO Q4HR PRN tab 07/22/24 [Rx] Sennosides-Docusate Sodium [Senokot-S] 2 each PO HS PRN tab 07/22/24 [Rx] Follow up Appointment(s)/Referral(s): Samuel Ragsdale MD [REFERRING] - As Needed Tylor Jorge MD [STAFF PHYSICIAN] - 07/30/24 3:45 pm (Your appointment on July 30 is for a groin check with Dr. Jorge. You also have a 30-day TAVR follow-up and echocardiogram with Dr. Jorge on September 10, 2024 at 2:30 PM, and a 1 year TAVR follow-up and echocardiogram with Dr. Jorge on June 24, 2025 at 1 PM) Clinic,Structural Heart [NON-STAFF] - 09/10/24 2:00 pm (Please come to the valve clinic on September 10, 2024 at 2 PM prior to your appointment with Dr. Jorge for 30-day post TAVR follow-up, and again on June 24, 2025 at 12:30 PM for 1 year post TAVR follow-up) Ambulatory/Diagnostic Orders: Basic Metabolic Panel [LAB.AMB] Location: None Selected Basic Metabolic Panel [LAB.AMB] Location: None Selected Complete Blood Count w/diff [LAB.AMB] Location: None Selected Complete Blood Count w/diff [LAB.AMB] Location: None Selected Activity/Diet/Wound Care/Special Instructions: DISCHARGE INSTRUCTIONS: 1. No driving for 1 week, or until physician gives their ok. 2. No lifting, pushing, or pulling more than 5-10 pounds for 1 week. 3. Hold both groins when you cough or sneeze for the next 2 weeks. Bruising is common, but report increased swelling, pain or fever >101F 4. Shower daily. No pool, hot tub, or bathtub for 1 week 5. No powders, lotions, ointments on incisions. 6. No straining, including for bowel movements. Use stool softner if necessary 7. Stairs are not an issue. Go slowly, using handrail and take 1 step at a time. Ambulate several times daily 8. Continue pain control per as needed orders. 9. Take only the medications listed on your discharge form 10. Eat low salt (limited to 2 grams or 2000 milligrams) daily, avoid adding salt, avoid canned/processed foods 11. Take your weight daily in the morning and record, bring with you to your follow up appointments 12. Keep all follow up appointments. You will need a valve clinic appointment at 30 days and 1 year post procedure for follow up 13. You have been referred to and are expected to begin Cardiac Rehab in approximately 4 weeks. 14. You will need antibiotics prior to any dental work, including cleanings, and any surgeries to prevent Endocarditis (bacterial infection in your heart) For any questions or concerns please call your valve coordinators: Beatrice or Yosef @ Discharge Disposition: HOME SELF-CARE
== END 2024-07-22 12:40 | disposition home or self-care (01) | DRG 267 ==
LOC: 2ORMAIN 09:49 → 3SCARD 13:51
PROVIDERS: ADMIT Internal Medicine Interventional Cardiology; ATTEND Internal Medicine Interventional Cardiology
PROC: B24BZZ4 Ultrasonography of Heart with Aorta, Transesophageal (ICD-10-PCS; 2024-07-21)
PROC: 5A1223Z Performance of Cardiac Pacing, Continuous (ICD-10-PCS; 2024-07-21)
PROC: B3101ZZ Fluoroscopy of Thoracic Aorta using Low Osmolar Contrast (ICD-10-PCS; 2024-07-21)
PROC: 02RF38Z Replacement of Aortic Valve with Zooplastic Tissue, Percutaneous Approach (ICD-10-PCS; principal; 2024-07-21 12:30)
DX: I35.0 Nonrheumatic aortic (valve) stenosis (principal); C44.90 Unspecified malignant neoplasm of skin, unspecified; I10 Essential (primary) hypertension; J44.9 Chronic obstructive pulmonary disease, unspecified; E66.01 Morbid (severe) obesity due to excess calories; Z68.36 Body mass index [BMI] 36.0-36.9, adult; I25.10 Atherosclerotic heart disease of native coronary artery without angina pectoris; N40.0 Benign prostatic hyperplasia without lower urinary tract symptoms; E78.5 Hyperlipidemia, unspecified; I25.2 Old myocardial infarction; Z95.5 Presence of coronary angioplasty implant and graft; Z79.82 Long term (current) use of aspirin; Z79.899 Other long term (current) drug therapy
CPT/HCPCS: 33361; 71045; 80048; 80053; 82330; 83735; 85025; 85027; 93306; 93312; 93320; 93325

== ENCOUNTER 2024-08-15 10:29 | Inpatient (IN) | payer MEDICARE ==
--- NOTE | 2024-08-15 10:42 | ED ---
General Adult HPI - General Chief complaint: Chest Pain Stated complaint: chest pain Time Seen by Provider: 08/15/24 10:31 Source: patient, EMS, RN notes reviewed Mode of arrival: EMS Limitations: altered mental status - History of Present Illness Initial comments: Patient is a 79-year-old male presenting to the emergency department with concerns with chest discomfort. Patient states he felt weak today and sat himself down and had difficult time getting up. Patient did have chest discomfort following this. Patient states chest discomfort is gone. Patient does not recall the episode well and had originally mistakenly said he had no chest discomfort until corrected by EMS. EMS did give nitroglycerin with resolution of symptoms. Patient is currently symptom-free. Patient did not injure himself. - Related Data Home Medications Medication Instructions Recorded Confirmed Tamsulosin [Flomax] 0.4 mg PO DAILY 09/17/18 07/21/24 Losartan Potassium [Cozaar] 100 mg PO DAILY 11/06/19 07/21/24 Chlorthalidone 25 mg PO DAILY 06/11/24 07/21/24 Finasteride [Proscar] 5 mg PO DAILY 06/11/24 07/21/24 Metoprolol Succinate (ER) [Toprol 50 mg PO DAILY 06/11/24 07/21/24 XL] QUEtiapine [SEROquel] 25 mg PO HS 06/11/24 07/21/24 Sertraline [Zoloft] 100 mg PO DAILY 06/11/24 07/21/24 traZODone HCL [Desyrel] 50 mg PO HS 06/11/24 07/21/24 Aspirin 81 mg PO DAILY PRN 07/21/24 07/21/24 Previous Rx's Medication Instructions Recorded Atorvastatin [Lipitor] 80 mg PO DAILY #30 tab 11/08/19 Acetaminophen Tab [Tylenol] 650 mg PO Q4HR PRN tab 07/22/24 Sennosides-Docusate Sodium 2 each PO HS PRN tab 07/22/24 [Senokot-S] Allergies Allergy/AdvReac Type Severity Reaction Status Date / Time No Known Allergies Allergy Verified 08/15/24 14:23 Review of Systems ROS Statement: Those systems with pertinent positive or pertinent negative responses have been documented in the HPI. ROS Other: All systems not noted in ROS Statement are negative. Constitutional: Denies: fever Eyes: Denies: eye pain ENT: Denies: ear pain Respiratory: Denies: cough Cardiovascular: Reports: as per HPI, chest pain Musculoskeletal: Denies: back pain Past Medical History Past Medical History: Cancer, Hyperlipidemia, Hypertension, Myocardial Infarction ([place]), Osteoarthritis ([place]), Prostate Disorder Additional Past Medical History / Comment(s): pt had recent admission to [facility] 06-02-24, heart murmur, increased SOB-has to stop when walking,SKIN CANCER,enlarged prostate Last Myocardial Infarction Date:: 06-02-24 History of Any Multi-Drug Resistant Organisms: None Reported Additional Past Surgical History / Comment(s): Tumor removed from left forearm(SKIN CANCER). COLONOSCOPY. Past Anesthesia/Blood Transfusion Reactions: No Reported Reaction Additional Past Anesthesia/Blood Transfusion Reaction / Comment(s): NEVER HAD GENERAL ANESTHESIA. Past Psychological History: No Psychological Hx Reported Smoking Status: Never smoker Past Alcohol Use History: None Reported Past Drug Use History: None Reported - Past Family History Mother Family Medical History: No Reported History Father Family Medical History: Cancer Additional Family Medical History / Comment(s): unk type, at age 55 General Exam Limitations: no limitations General appearance: alert, in no apparent distress Head exam: Present: normocephalic Eye exam: Present: normal appearance Neck exam: Present: normal inspection. Absent: tenderness Respiratory exam: Present: normal lung sounds bilaterally. Absent: chest wall tenderness Cardiovascular Exam: Present: regular rate, normal rhythm Expanded Peripheral pulses: 2+: Radial (R), Radial (L), Posterior Tibialis (R), Posterior Tibialis (L) GI/Abdominal exam: Present: soft. Absent: tenderness Extremities exam: Present: normal inspection, full ROM. Absent: tenderness Back exam: Absent: tenderness Neurological exam: Present: alert, CN II-XII intact. Absent: motor sensory deficit Psychiatric exam: Present: normal affect, normal mood Skin exam: Present: normal color Course Vital Signs 08/15/24 08/15/24 08/15/24 10:32 12:38 14:17 Temperature 98.4 F Pulse Rate 86 72 73 Respiratory 20 20 20 Rate Blood Pressure 167/91 170/80 170/82 O2 Sat by Pulse 93 L 97 96 Oximetry EKG Findings - EKG Results: EKG: interpreted by ERMD (Left axis. Left bundle branch block. Nonspecific ST- T), sinus rhythm Medical Decision Making - Medical Decision Making Was pt. sent in by a medical professional or institution (, PA, MRI SPECIAL PROCEDURES TECHNOLOGIST, urgent c are, hospital, or skilled nursing...) When possible be specific @ -No Did you speak to anyone other than the patient for history (EMS, parent, family, police, friend...)? What history was obtained from this source @ -No Did you review nursing and triage notes (agree or disagree)? Why? @ -I reviewed and agree with nursing and triage notes Were old charts reviewed (outside hosp., previous admission, EMS record, old EKG, old radiological studies, urgent care reports/EKG's, skilled nursing records)? Report findings @ -No old charts were reviewed Differential Diagnosis (chest pain, altered mental status, abdominal pain women, abdominal pain men, vaginal bleeding, weakness, fever, dyspnea, syncope, headache, dizziness, GI bleed, back pain, seizure, CVA, palpatations, mental health, musculoskeletal)? @ -Differential Chest Pain: Stable Angina, Unstable Angina, STEMI, NSTEMI Aortic Dissection, Pneumothorax, Musculoskeletal, Esophageal Spasm GERD, Cholecystitis, Pancreatitis, Zoster, this is not meant to be an all-inclusive list. EKG interpreted by me (3pts min.). @ -As above X-rays interpreted by me (1pt min.). @ -Chest x-ray shows cardiomegaly and mild interstitial prominence CT interpreted by me (1pt min.). @ -None done U/S interpreted by me (1pt. min.). @ -None done What testing was considered but not performed or refused? (CT, X-rays, U/S, labs)? Why? @ -None What meds were considered but not given or refused? Why? @ -None Did you discuss the management of the patient with other professionals (professionals i.e. , PA, MRI SPECIAL PROCEDURES TECHNOLOGIST, lab, RT, psych nurse, sexual assault social worker, nurse staff community health, teacher, hospital chief financial officer, director case)? Give summary @ -[facility] physician group, to admit for hospital call. Practitioner Mark who does request starting heparin Was smoking cessation discussed for >3mins.? @ -No Was critical care preformed (if so, how long)? @ -31 minutes critical care time Were there social determinants of health that impacted care today? How? (Homelessness, low income, unemployed, alcoholism, drug addiction, transportation, low edu. Level, literacy, decrease access to med. care, senior care, rehab)? @ -No Was there de-escalation of care discussed even if they declined (Discuss DNR or withdrawal of care, Hospice)? DNR status @ -No What co-morbidities impacted this encounter? (DM, HTN, Smoking, COPD, CAD, Cancer, CVA, ARF, Chemo, Hep., AIDS, mental health diagnosis, sleep apnea, morbid obesity)? @ -None Was patient admitted / discharged? Hospital course, mention meds given and route, prescriptions, significant lab abnormalities, going to OR and other pertinent info. @ -Patient presents with generalized weakness and chest discomfort, troponin minimally elevated. Patient will be admitted with cardiac consult, admission orders written. Patient reevaluated, patient and family updated. Undiagnosed new problem with uncertain prognosis? @ -No Drug Therapy requiring intensive monitoring for toxicity (Heparin, Nitro, Insulin, Cardizem)? @ -Heparin drip Were any procedures done? @ -No Diagnosis/symptom? @ -Chest pain Acute, or Chronic, or Acute on Chronic? @ -Acute Uncomplicated (without systemic symptoms) or Complicated (systemic symptoms)? @ -Default Side effects of treatment? @ -No Exacerbation, Progression, or Severe Exacerbation? @ -No Poses a threat to life or bodily function? How? (Chest pain, [place], SD, pneumonia, PE, COPD, DKA, ARF, appy, cholecystitis, CVA, Diverticulitis, Homicidal, Suicidal, threat to staff... and all critical care pts) @ -Threat to cardiac function - Lab Data Result diagrams: 08/15/24 10:40 08/15/24 10:40 Lab Results 08/15/24 08/15/24 08/15/24 Range/Units 10:40 10:40 10:40 WBC 13.7 H (3.8-10.6) k/uL RBC 4.75 (4.30-5.90) m/uL Hgb 13.7 (13.0-17.5) gm/dL Hct 40.8 (39.0-53.0) % MCV 85.9 (80.0-100.0) fL MCH 29.0 (25.0-35.0) pg MCHC 33.7 (31.0-37.0) g/dL RDW 13.7 (11.5-15.5) % Plt Count 266 (150-450) k/uL MPV 6.9 Neutrophils % 88 % Lymphocytes % 5 % Monocytes % 6 % Eosinophils % 1 % Basophils % 0 % Neutrophils # 12.1 H (1.3-7.7) k/uL Lymphocytes # 0.7 L (1.0-4.8) k/uL Monocytes # 0.8 (0-1.0) k/uL Eosinophils # 0.1 (0-0.7) k/uL Basophils # 0.0 (0-0.2) k/uL PT (10.0-12.5) sec INR (<1.2) APTT (22.0-30.0) sec Sodium 139 (137-145) mmol/L Potassium 3.6 (3.5-5.1) mmol/L Chloride 105 (98-107) mmol/L Carbon Dioxide 27 (22-30) mmol/L Anion Gap 7 mmol/L BUN 23 H (9-20) mg/dL Creatinine 0.93 (0.66-1.25) mg/dL Est GFR (CKD-EPI)AfAm >90 (>60 ml/min/1.73 sqM) Est GFR (CKD-EPI)NonAf 79 (>60 ml/min/1.73 sqM) Glucose 148 H (74-99) mg/dL Calcium 9.3 (8.4-10.2) mg/dL Magnesium 1.8 (1.6-2.3) mg/dL Total Bilirubin 1.1 (0.2-1.3) mg/dL AST 31 (17-59) U/L ALT 25 (4-49) U/L Alkaline Phosphatase 83 (38-126) U/L Troponin I 0.055 H* (0.000-0.034) ng/mL NT-Pro-B Natriuret Pep 638 pg/mL Total Protein 7.1 (6.3-8.2) g/dL Albumin 4.5 (3.5-5.0) g/dL Urine Color Urine Appearance (Clear) Urine pH (5.0-8.0) Ur Specific [place] (1.001-1.035) Urine Protein (Negative) Urine Glucose (UA) (Negative) Urine Ketones (Negative) Urine Blood (Negative) Urine Nitrite (Negative) Urine Bilirubin (Negative) Urine Urobilinogen (<2.0) mg/dL Ur Leukocyte Esterase (Negative) Urine RBC (0-5) /hpf Urine WBC (0-5) /hpf Ur Squamous Epith Cells (0-4) /hpf Urine Mucus (None) /hpf 08/15/24 08/15/24 Range/Units 11:16 12:38 WBC (3.8-10.6) k/uL RBC (4.30-5.90) m/uL Hgb (13.0-17.5) gm/dL Hct (39.0-53.0) % MCV (80.0-100.0) fL MCH (25.0-35.0) pg MCHC (31.0-37.0) g/dL RDW (11.5-15.5) % Plt Count (150-450) k/uL MPV Neutrophils % % Lymphocytes % % Monocytes % % Eosinophils % % Basophils % % Neutrophils # (1.3-7.7) k/uL Lymphocytes # (1.0-4.8) k/uL Monocytes # (0-1.0) k/uL Eosinophils # (0-0.7) k/uL Basophils # (0-0.2) k/uL PT 10.4 (10.0-12.5) sec INR 0.9 (<1.2) APTT 24.2 (22.0-30.0) sec Sodium (137-145) mmol/L Potassium (3.5-5.1) mmol/L Chloride (98-107) mmol/L Carbon Dioxide (22-30) mmol/L Anion Gap mmol/L BUN (9-20) mg/dL Creatinine (0.66-1.25) mg/dL Est GFR (CKD-EPI)AfAm (>60 ml/min/1.73 sqM) Est GFR (CKD-EPI)NonAf (>60 ml/min/1.73 sqM) Glucose (74-99) mg/dL Calcium (8.4-10.2) mg/dL Magnesium (1.6-2.3) mg/dL Total Bilirubin (0.2-1.3) mg/dL AST (17-59) U/L ALT (4-49) U/L Alkaline Phosphatase (38-126) U/L Troponin I (0.000-0.034) ng/mL NT-Pro-B Natriuret Pep pg/mL Total Protein (6.3-8.2) g/dL Albumin (3.5-5.0) g/dL Urine Color Yellow Urine Appearance Clear (Clear) Urine pH 6.5 (5.0-8.0) Ur Specific [place] 1.018 (1.001-1.035) Urine Protein 2+ H (Negative) Urine Glucose (UA) Negative (Negative) Urine Ketones Negative (Negative) Urine Blood Negative (Negative) Urine Nitrite Negative (Negative) Urine Bilirubin Negative (Negative) Urine Urobilinogen 4.0 (<2.0) mg/dL Ur Leukocyte Esterase Negative (Negative) Urine RBC 1 (0-5) /hpf Urine WBC 3 (0-5) /hpf Ur Squamous Epith Cells <1 (0-4) /hpf Urine Mucus Rare H (None) /hpf Critical Care Time Critical Care Time: Yes Disposition Clinical Impression: Unstable angina Disposition: ADMITTED IP TO THIS HOSP Is patient prescribed a controlled substance at d/c from ED?: No Referrals: None,Stated [Primary Care Provider] - 1-2 days Time of Disposition: 14:37
[2024-08-15] MEDS: ASPIRIN 81 MG PO STA (10:44)
[2024-08-15 11:02] LABS: Basophils % (A) 0 %; Eosinophils # (A) 0.1 k/uL (0-0.7); Eosinophils % (A) 1 %; HCT 40.8 % (39.0-53.0); HGB 13.7 gm/dL (13.0-17.5); Lymphocytes # (A) 0.7 k/uL (1.0-4.8); Lymphocytes % (A) 5 %; MCHC 33.7 g/dL (31.0-37.0); MCV 85.9 fL (80.0-100.0); Mean Platelet Volume 6.9; Monocytes # (A) 0.8 k/uL (0-1.0); Monocytes % (A) 6 %; Neutrophils # (A) 12.1 k/uL (1.3-7.7); Neutrophils % (A) 88 %; Platelet Count 266 k/uL (150-450); RBC 4.75 m/uL (4.30-5.90); RDW 13.7 % (11.5-15.5); WBC 13.7 k/uL (3.8-10.6)
--- NOTE | 2024-08-15 11:04 | XR ---
2 view chest HISTORY: Chest pain. COMPARISON: 07/22/2024 TECHNIQUE: PA and lateral views chest obtained. FINDINGS: The lungs are clear of consolidative, interstitial or masslike opacity. There is no pleural effusion, pleural thickening or pneumothorax. There is suggestion of mild pulmonary congestion. There is moderate cardiomegaly. The osseous structures and soft tissues of the thorax are intact. IMPRESSION: Findings suggestive of mild CHF and clinical correlation is recommended. [facility], , 08/15/2024 11:02 AM
[2024-08-15 11:14] LABS: ALT 25 U/L (4-49); AST 31 U/L (17-59); African American GFR (CKD) >90 (>60 ml/min/1.73 sqM); Albumin 4.5 g/dL (3.5-5.0); Alkaline Phosphatase 83 U/L (38-126); Anion Gap 7 mmol/L; Blood Urea Nitrogen 23 mg/dL (9-20); Calcium 9.3 mg/dL (8.4-10.2); Carbon Dioxide 27 mmol/L (22-30); Chloride 105 mmol/L (98-107); Glucose 148 mg/dL (74-99); Magnesium 1.8 mg/dL (1.6-2.3); Non-African American GFR(CKD) 79 (>60 ml/min/1.73 sqM); Potassium 3.6 mmol/L (3.5-5.1); Sodium 139 mmol/L (137-145); Total Bilirubin 1.1 mg/dL (0.2-1.3); Total Protein 7.1 g/dL (6.3-8.2)
[2024-08-15 11:22] LABS: NT-Pro-B-Type Natriuretic Pept 638 pg/mL
[2024-08-15 11:30] LABS: INR 0.9 (<1.2); Partial Thromboplastin Time 24.2 sec (22.0-30.0); Prothrombin Time 10.4 sec (10.0-12.5)
[2024-08-15 12:52] LABS: Appearance,Urine Clear (Clear); Bilirubin,Urine Negative (Negative); Blood,Urine Negative (Negative); Color,Urine Yellow; Glucose,Urine (UA) Negative (Negative); Ketones,Urine Negative (Negative); Leukocyte Esterase,Urine Negative (Negative); Mucus,Urine Rare /hpf; Nitrite,Urine Negative (Negative); PH, Urine 6.5 (5.0-8.0); Protein,Urine 2+ (Negative); RBC,Urine 1 /hpf (0-5); Specific Gravity,Urine 1.018 (1.001-1.035); Squamous Epithelial Cell,Urine <1 /hpf (0-4); WBC,Urine 3 /hpf (0-5)
[2024-08-15] MEDS ORDERED: NITROGLYCERIN SL TABS 0.4 MG TAB SUBLINGUAL PRN (14:41)
[2024-08-15] MEDS: HEPARIN SODIUM 1,000 UN/ML (10ML VL) IV ONE (15:39)
[2024-08-15] MEDS: HEPARIN SOD,PORK IN 0.45% NACL 25,000 UNIT in 0.45% NACL 1 250ML.BAG IV SCH (15:40)
--- NOTE | 2024-08-15 17:30 | P.HPIM ---
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 He presented to the emergency department secondary to reports of weakness. Patient reports he was feeling generalized weakness and immediately sat down and rested for a moment but upon getting up he began feeling pain to his midsternal chest and was unable to stand secondary to an overall weakness and heaviness throughout his body. EMS was called for transport to the hospital. Patient denies experiencing any dizziness, lig htheadedness, changes in vision or hearing, palpitations, shortness of breath, cough or congestion, or experiencing any focal numbness or tingling in his extremities. Per ER report, patient received aspirin 324 mg p.o. x 1 dose and 1 nitroglycerin tablet sublingually in which she reports resulted in full resolution of chest pain prior to arrival in the hospital. On arrival to our facility, patient underwent evaluation in the emergency department. Vital signs upon arrival show blood pressure 167/91, heart rate 86, respiratory rate 20, temp 98.4 F, and SpO2 of 93% on room air. EKG was completed showing sinus mechanism at 86 bpm with an T wave inversions in leads I, aVL,left bundle branch block and T wave inversion in leads I and aVL ( Left bundle branch block and T wave inversion in lead I and aVL was present on previous EKG completed 07/23/2024). Chest x-ray completed showing mild pulmonary congestion consistent with mild CHF and moderate cardiomegaly. Labs completed and reviewed. CBC showing mild leukocytosis with WBC count of 13.7. Coagulation profile normal findings. BMP showing mild prerenal azotemia with BUN of 23 and a glucose of 148 otherwise normal findings. Liver profile unremarkable. Troponin elevated at 0.055 and proBNP 638. Patient was started on heparin infusion for unstable angina and admitted under services with consultation to cardiology. Review of systems: Pertinent positives and negatives as discussed in HPI, a complete review of systems was performed and all other systems are negative. Physical exam: Vital signs reviewed and stable. General: Nontoxic, no distress and appears stated age. Derm: Skin warm and dry, normal coloration for ethnicity. Head: Atraumatic, normocephalic and symmetric. Eyes: EOM's intact, no lid lag, and anicteric sclera Mouth: no lip lesions, mucus membranes moist Cardiovascular: regular rate and rhythm with normal S1S2, systolic murmur, positive posterior tibial pulses bilaterally, and cap refill < 2 seconds. Lungs: Respirations even, regular, and unlabored on room air. Lungs slightly diminished with diffuse expiratory wheezes bilaterally. No rhonchi, rales, or crackles noted. Abdominal: soft, nontender to palpation, no guarding, no appreciable organomegaly. Bilateral groin sites from previous TAVR placement showing no signs of hematoma. Ext: ROM intact. No gross muscle atrophy, no edema, no contractures Neuro: Speech clear, face symmetrical and CN II-XII grossly intact with no noted focal neuro deficits Psych: Alert and oriented to person, place, time, and situation. Appropriate and pleasant affect. Assessment and Plan of Care: NSTEMI Unstable angina Status post TAVR on 07/21/2024 CAD status post stenting Left bundle branch block -Cardiology consulted, appreciate recommendations -Continue low intensity heparin infusion with close monitoring of PTT every 6 hours for goal therapeutic range of 45 to 79 seconds. -Telemetry monitoring -Trend troponins -Cardiac diet, NPO at midnight -Cardiac medication regimen with aspirin 81 mg daily, atorvastatin 80 mg daily, chlorthalidone 25 mg daily, losartan 100 mg daily, and metoprolol succinate 50 mg daily. -Lipid profile with a.m. labs. -Echocardiogram to be completed -Sublingual nitro 0.4 mg every 5 minutes as needed for chest pain. Hypertension -Monitor vital signs and continue daily medication regimen with losartan 100 mg daily metoprolol succinate 50 mg daily. Hyperlipidemia -Continue daily medication regimen with atorvastatin 80 mg daily. BPH -Continue daily medication regimen with Flomax 0.4 mg daily. Data and Imaging reviewed: As stated above in HPI The patient is admitted with an anticipated greater than 2 midnight stay for evaluation of NSTEMI CODE STATUS: Full code DVT prophylaxis: Heparin infusion Anticipated discharge date: Pending clinical course Anticipated discharge place: Pending clinical course Patient was seen independently by Nurse Practitioner. This document was prepared using [employer] dictation software. Please allow for errors in automated weaver while rare they do occur. Mark Huggins NP rendered care for this patient independently, reviewed the findings and plan as documented in the note above and agree with plan. I did not physically speak with or examine the patient on this date. . Past Medical History Past Medical History: Cancer, Hyperlipidemia, Hypertension, Myocardial Infarction ([place]), Osteoarthritis (OA), Prostate Disorder Additional Past Medical History / Comment(s): pt had recent admission to [facility] 06-02-24, heart murmur, increased SOB-has to stop when walking,SKIN CANCER,enlarged prostate Last Myocardial Infarction Date:: 06-02-24 History of Any Multi-Drug Resistant Organisms: None Reported Additional Past Surgical History / Comment(s): Tumor removed from left forearm(SKIN CANCER). COLONOSCOPY. Past Anesthesia/Blood Transfusion Reactions: No Reported Reaction Additional Past Anesthesia/Blood Transfusion Reaction / Comment(s): NEVER HAD GENERAL ANESTHESIA. Past Psychological History: No Psychological Hx Reported Smoking Status: Never smoker Past Alcohol Use History: None Reported Past Drug Use History: None Reported - Past Family History Mother Family Medical History: No Reported History Father Family Medical History: Cancer Additional Family Medical History / Comment(s): unk type, at age 55 Medications and Allergies Home Medications Medication Instructions Recorded Confirmed Type Tamsulosin [Flomax] 0.4 mg PO DAILY 09/17/18 08/15/24 History Losartan Potassium [Cozaar] 100 mg PO DAILY 11/06/19 08/15/24 History Atorvastatin [Lipitor] 80 mg PO DAILY #30 tab 11/08/19 08/15/24 Rx Chlorthalidone 25 mg PO DAILY 06/11/24 08/15/24 History Finasteride [Proscar] 5 mg PO DAILY 06/11/24 08/15/24 History Metoprolol Succinate (ER) [Toprol 50 mg PO DAILY 06/11/24 08/15/24 History XL] Sertraline [Zoloft] 100 mg PO DAILY 06/11/24 08/15/24 History traZODone HCL [Desyrel] 50 mg PO HS 06/11/24 08/15/24 History Allergies Allergy/AdvReac Type Severity Reaction Status Date / Time No Known Allergies Allergy Verified 08/15/24 14:23 Physical Exam Vitals: Vital Signs Temp Pulse Resp BP Pulse Ox 08/15/24 14:17 73 20 170/82 96 08/15/24 12:38 72 20 170/80 97 08/15/24 10:32 98.4 F 86 20 167/91 93 L Intake and Output 08/15/24 08/15/24 08/15/24 06:59 14:59 22:59 Other: Weight 127.459 kg Results CBC & Chem 7: 08/15/24 10:40 08/15/24 10:40 Labs: Abnormal Lab Results - Last 24 Hours (Table) 08/15/24 08/15/24 08/15/24 Range/Units 10:40 10:40 10:40 WBC 13.7 H (3.8-10.6) k/uL Neutrophils # 12.1 H (1.3-7.7) k/uL Lymphocytes # 0.7 L (1.0-4.8) k/uL BUN 23 H (9-20) mg/dL Glucose 148 H (74-99) mg/dL Troponin I 0.055 H* (0.000-0.034) ng/mL Urine Protein (Negative) Urine Mucus (None) /hpf 08/15/24 Range/Units 12:38 WBC (3.8-10.6) k/uL Neutrophils # (1.3-7.7) k/uL Lymphocytes # (1.0-4.8) k/uL BUN (9-20) mg/dL Glucose (74-99) mg/dL Troponin I (0.000-0.034) ng/mL Urine Protein 2+ H (Negative) Urine Mucus Rare H (None) /hpf
[2024-08-15] MEDS: CLOPIDOGREL 75 MG TAB PO STA (18:07)
[2024-08-15] MEDS: METOPROLOL TARTRATE 50 MG TAB PO STA (18:07)
[2024-08-15] MEDS: traZODone HCL 50 MG TAB PO SCH (21:06)
[2024-08-15] MEDS: HEPARIN SODIUM 1,000 UN/ML (10ML VL) IV PRN (23:15)
[2024-08-16] MEDS: TRIMETHOBENZAMIDE 100 MG/ML 2 ML VIAL IM STA (03:10)
[2024-08-16 06:11] LABS: HCT 41.3 % (39.0-53.0); HGB 13.7 gm/dL (13.0-17.5); MCH 28.5 pg (25.0-35.0); MCHC 33.1 g/dL (31.0-37.0); MCV 86.2 fL (80.0-100.0); Platelet Count 263 k/uL (150-450); RBC 4.79 m/uL (4.30-5.90); RDW 13.6 % (11.5-15.5); WBC 10.4 k/uL (3.8-10.6)
[2024-08-16 06:17] LABS: Prothrombin Time 11.1 sec (10.0-12.5)
[2024-08-16 06:43] LABS: ALT 25 U/L (4-49); AST 32 U/L (17-59); African American GFR (CKD) >90 (>60 ml/min/1.73 sqM); Albumin 4.2 g/dL (3.5-5.0); Alkaline Phosphatase 92 U/L (38-126); Anion Gap 5 mmol/L; Blood Urea Nitrogen 21 mg/dL (9-20); Calcium 9.5 mg/dL (8.4-10.2); Carbon Dioxide 31 mmol/L (22-30); Chloride 103 mmol/L (98-107); Glucose 121 mg/dL (74-99); Magnesium 1.8 mg/dL (1.6-2.3); Non-African American GFR(CKD) 83 (>60 ml/min/1.73 sqM); Potassium 3.2 mmol/L (3.5-5.1); Sodium 139 mmol/L (137-145); Total Bilirubin 1.1 mg/dL (0.2-1.3); Total Protein 6.9 g/dL (6.3-8.2)
[2024-08-16] MEDS ORDERED: ASPIRIN 325 MG TAB PO SCH (09:00)
[2024-08-16 09:05] LABS: Chol/HDL Ratio 4.92 Ratio
[2024-08-16] MEDS: LOSARTAN 50 MG TAB PO SCH (11:08)
[2024-08-16] MEDS: CLOPIDOGREL 75 MG TAB PO SCH (11:09)
[2024-08-16] MEDS: CHLORTHALIDONE 25 MG TAB PO SCH (11:09)
[2024-08-16] MEDS: POTASSIUM CHLORIDE ER 20 MEQ TAB.ER PO STA (11:09)
[2024-08-16] MEDS: FINASTERIDE 5 MG TAB PO SCH (11:09)
[2024-08-16] MEDS: TAMSULOSIN 0.4 MG CAP.ER.24H PO SCH (11:09)
[2024-08-16] MEDS: SERTRALINE 100 MG TAB PO SCH (11:09)
[2024-08-16] MEDS: ATORVASTATIN 80 MG TAB PO SCH (11:09)
[2024-08-16] MEDS: ASPIRIN 81 MG PO SCH (11:09)
[2024-08-16] MEDS: METOPROLOL SUCCINATE (ER) 50 MG TAB.ER.24H PO SCH (11:09)
--- NOTE | 2024-08-16 14:27 | P.PN ---
Subjective Progress Note Date: 08/16/24 Hospital course: Patient is a pleasant 79-year-old male with a past medical history of CAD with previous stenting, known left bundle branch block, hypertension, hyperlipidemia, BPH, and recent TAVR on 07/21/2024. He presented to the emergency department secondary to reports of weakness. Patient reports he was feeling generalized weakness and immediately sat down and rested for a moment but upon getting up he began feeling pain to his midsternal chest and was unable to stand secondary to an overall weakness and heaviness throughout his body. EMS was called for transport to the hospital. Patient denies experiencing any dizziness, lightheadedness, changes in vision or hearing, palpitations, shortness of breath, cough or congestion, or experiencing any focal numbness or tingling in his extremities. Per ER report, patient received aspirin 324 mg p.o. x 1 dose and 1 nitroglycerin tablet sublingually in which she reports resulted in full resolution of chest pain prior to arrival in the hospital. On arrival to our facility, patient underwent evaluation in the emergency department. Vital signs upon arrival show blood pressure 167/91, heart rate 86, respiratory rate 20, temp 98.4 F, and SpO2 of 93% on room air. EKG was completed showing sinus m echanism at 86 bpm with an T wave inversions in leads I, aVL,left bundle branch block and T wave inversion in leads I and aVL ( Left bundle branch block and T wave inversion in lead I and aVL was present on previous EKG completed 07/23/2024). Chest x-ray completed showing mild pulmonary congestion consistent with mild CHF and moderate cardiomegaly. Labs completed and reviewed. CBC showing mild leukocytosis with WBC count of 13.7. Coagulation profile normal findings. BMP showing mild prerenal azotemia with BUN of 23 and a glucose of 148 otherwise normal findings. Liver profile unremarkable. Troponin elevated at 0.055 and proBNP 638. Patient was started on heparin infusion for unstable angina and admitted under services with consultation to cardiology. Troponins were trended resulting at 0.055, 0.404, and 0.448. Physical exam: Patient was seen and fully evaluated at bedside. He denies any further episodes of chest pain or discomfort since receiving nitroglycerin administered by EMS. He remains on heparin infusion. Patient reports continued generalized weakness and feeling tired otherwise denies any complaints at this time. Vital signs reviewed and stable. General: Nontoxic, no distress and appears stated age. Derm: Skin warm and dry, normal coloration for ethnicity. Head: Atraumatic, normocephalic and symmetric. Eyes: EOM's intact, no lid lag, and anicteric sclera Mouth: no lip lesions, mucus membranes moist Cardiovascular: regular rate and rhythm with normal S1S2, systolic murmur, positive posterior tibial pulses bilaterally, and cap refill < 2 seconds. Lungs: Respirations even, regular, and unlabored on room air. Lungs slightly diminished with diffuse expiratory wheezes bilaterally. No rhonchi, rales, or crackles noted. Abdominal: soft, nontender to palpation, no guarding, no appreciable organomegaly. Bilateral groin sites from previous TAVR placement showing no signs of hematoma. Ext: ROM intact. No gross muscle atrophy, no edema, no contractures Neuro: Speech clear, face symmetrical and CN II-XII grossly intact with no noted focal neuro deficits Psych: Alert and oriented to person, place, time, and situation. Appropriate and pleasant affect. Assessment and Plan of Care: NSTEMI Unstable angina Status post TAVR on 07/21/2024 CAD status post stenting Left bundle branch block -Cardiology consulted, appreciate recommendations -Continue low intensity heparin infusion with close monitoring of PTT every 6 hours for goal therapeutic range of 45 to 79 seconds. Currently PTT subtherapeutic at 39.9 seconds. -Telemetry monitoring -Troponins were trended resulting at 0.055, 0.404, and 0.448. -Continue cardiac medication regimen with aspirin 81 mg daily, atorvastatin 80 mg daily, chlorthalidone 25 mg daily, losartan 100 mg daily, and metoprolol succinate 50 mg daily. -Lipid profile showing low HDL of 37.80 otherwise normal findings. -Echocardiogram to be completed -Sublingual nitro 0.4 mg every 5 minutes as needed for chest pain. Hypertension -Monitor vital signs and continue daily medication regimen with losartan 100 mg daily metoprolol succinate 50 mg daily. Hyperlipidemia -Continue daily medication regimen with atorvastatin 80 mg daily. BPH -Continue daily medication regimen with Flomax 0.4 mg daily. Data and Imaging reviewed: Morning labs reviewed. CBC unremarkable. Coagulation profile showing a subtherapeutic INR of 39.9. BMP showing hypercarbia with bicarb of 31, mild prerenal azotemia with BUN of 21, and hypokalemia order placed for K-Dur 40 mEq p.o. x 1 dose. Blood glucose 121. Magnesium 1.8. Liver profile unremarkable. Lipid profile showing low HDL of 37.80 otherwise normal findings. CODE STATUS: Full code DVT prophylaxis: Heparin infusion Anticipated discharge date: Pending clinical course Anticipated discharge place: Pending clinical course Patient was seen independently by Nurse Practitioner. This document was prepared using [email or web address] dictation software. Please allow for errors in supervisor jewelry department while rare they do occur. Mark Huggins NP rendered care for this patient independently, reviewed the findings and plan as documented in the note above and agree with plan. I did not physically speak with or examine the patient on this date. . Objective - Vital Signs Vital signs: Vital Signs Temp 98.4 F 08/15/24 10:32 Pulse 48 L 08/16/24 06:29 Resp 18 08/16/24 06:29 BP 180/90 08/16/24 06:29 Pulse Ox 98 08/16/24 06:29 FiO2 Intake & Output 08/15/24 08/16/24 08/16/24 18:59 06:59 18:59 Intake Total 76.524 112.996 Balance 76.524 112.996 Weight 127.459 kg Intake: Intake, IV Titration 76.524 112.996 Amount Heparin Sod,Pork in 0.45% 76.524 112.996 NaCl 25,000 unit In 0.45 % NaCl 1 250ml.bag @ 7.9 UNITS/KG/HR 10.069 mls/hr IV .Q24H [facility] Rx#: [id number] - Labs CBC & Chem 7: 08/16/24 05:44 08/16/24 05:44 Labs: Abnormal Lab Results - Last 24 Hours (Table) 08/15/24 08/15/24 08/15/24 Range/Units 10:40 10:40 10:40 WBC 13.7 H (3.8-10.6) k/uL Neutrophils # 12.1 H (1.3-7.7) k/uL Lymphocytes # 0.7 L (1.0-4.8) k/uL APTT (22.0-30.0) sec Potassium (3.5-5.1) mmol/L Carbon Dioxide (22-30) mmol/L BUN 23 H (9-20) mg/dL Glucose 148 H (74-99) mg/dL Troponin I 0.055 H* (0.000-0.034) ng/mL Urine Protein (Negative) Urine Mucus (None) /hpf 08/15/24 08/15/24 08/15/24 Range/Units 12:38 15:42 18:34 WBC (3.8-10.6) k/uL Neutrophils # (1.3-7.7) k/uL Lymphocytes # (1.0-4.8) k/uL APTT (22.0-30.0) sec Potassium (3.5-5.1) mmol/L Carbon Dioxide (22-30) mmol/L BUN (9-20) mg/dL Glucose (74-99) mg/dL Troponin I 0.404 H* 0.448 H* (0.000-0.034) ng/mL Urine Protein 2+ H (Negative) Urine Mucus Rare H (None) /hpf 08/15/24 08/16/24 08/16/24 Range/Units 21:45 05:44 05:44 WBC (3.8-10.6) k/uL Neutrophils # (1.3-7.7) k/uL Lymphocytes # (1.0-4.8) k/uL APTT 31.3 H 39.9 H (22.0-30.0) sec Potassium 3.2 L (3.5-5.1) mmol/L Carbon Dioxide 31 H (22-30) mmol/L BUN 21 H (9-20) mg/dL Glucose 121 H (74-99) mg/dL Troponin I (0.000-0.034) ng/mL Urine Protein (Negative) Urine Mucus (None) /hpf
--- NOTE | 2024-08-16 18:40 | P.CRDCN ---
History of Present Illness History of present illness: This is Dr. Mckinley dictating a consult on this patient The patient was interviewed and examined IMPRESSION / ASSESSMENT: Recent TAVR Underlying left bundle branch block Weakness and collapse, no syncope PLAN: Stop heparin Resume all medications 2D echo and Doppler study Continue monitoring on telemetry and watch for any bradycardia arrhythmias Blood pressure management. His blood pressure is elevated despite losartan. I will switch to valsartan 320 mg p.o. daily starting tomorrow morning HPI Patient was walking around yesterday when he felt weak. His legs gave out and he could not get back up. Apparently everyone states that he had chest pain after that but the patient denies it repeatedly. There have been numerous documentation of chest pain in the chart but the patient says absolutely not. His main symptoms were weakness in the legs and he could not get up Here his blood pressure is elevated he has a left bundle branch block he recently underwent TAVR and follows with Dr. Dickerson He is lying comfortably in bed ROS: No fever chills or rigors, no cough, phlegm or expectoration, no nausea, vomiting or diarrhea, no hematuria, dysuria, no musculoskeletal complaints, no strokes or seizures, no skin lesions. EXAMINATION: Soft systolic murmur over the aortic area Clear lungs Lying flat in bed looks comfortable Elevated blood pressure readings REVIEW OF LABS, ECG & MEDICAL DATA Borderline abnormal troponins flat trend Past Medical History Past Medical History: Cancer, Hyperlipidemia, Hypertension, Myocardial Infarction (ID), Osteoarthritis (OA), Prostate Disorder Additional Past Medical History / Comment(s): pt had recent admission to [facility] 06-02-24, heart murmur, increased SOB-has to stop when walking,SKIN CANCER,enlarged prostate Last Myocardial Infarction Date:: 06-02-24 History of Any Multi-Drug Resistant Organisms: None Reported Additional Past Surgical History / Comment(s): Tumor removed from left forearm(SKIN CANCER). COLONOSCOPY. Past Anesthesia/Blood Transfusion Reactions: No Reported Reaction Additional Past Anesthesia/Blood Transfusion Reaction / Comment(s): NEVER HAD GENERAL ANESTHESIA. Past Psychological History: No Psychological Hx Reported Smoking Status: Never smoker Past Alcohol Use History: None Reported Past Drug Use History: None Reported - Past Family History Mother Family Medical History: No Reported History Father Family Medical History: Cancer Additional Family Medical History / Comment(s): unk type, at age 55 Medications and Allergies Home Medications Medication Instructions Recorded Confirmed Type Tamsulosin [Flomax] 0.4 mg PO DAILY 09/17/18 08/15/24 History Losartan Potassium [Cozaar] 100 mg PO DAILY 11/06/19 08/15/24 History Atorvastatin [Lipitor] 80 mg PO DAILY #30 tab 11/08/19 08/15/24 Rx Chlorthalidone 25 mg PO DAILY 06/11/24 08/15/24 History Finasteride [Proscar] 5 mg PO DAILY 06/11/24 08/15/24 History Metoprolol Succinate (ER) [Toprol 50 mg PO DAILY 06/11/24 08/15/24 History XL] Sertraline [Zoloft] 100 mg PO DAILY 06/11/24 08/15/24 History traZODone HCL [Desyrel] 50 mg PO HS 06/11/24 08/15/24 History Allergies Allergy/AdvReac Type Severity Reaction Status Date / Time No Known Allergies Allergy Verified 08/15/24 14:23 Physical Exam Vitals: Vital Signs Pulse Resp BP Pulse Ox 08/16/24 06:29 48 L 18 180/90 98 08/16/24 05:00 54 L 18 174/88 98 08/16/24 03:00 47 L 16 98 08/15/24 23:19 54 L 20 184/79 95 08/15/24 22:33 52 L 16 188/98 97 08/15/24 18:07 74 20 188/98 96 08/15/24 17:13 62 18 175/88 96 08/15/24 14:17 73 20 170/82 96 08/15/24 12:38 72 20 170/80 97 Intake and Output 08/15/24 08/16/24 08/16/24 22:59 06:59 14:59 Intake Total 76.524 112.996 Balance 76.524 112.996 Intake: Intake, IV Titration 76.524 112.996 Amount Heparin Sod,Pork in 0.45% 76.524 112.996 NaCl 25,000 unit In 0.45 % NaCl 1 250ml.bag @ 7.9 UNITS/KG/HR 10.069 mls/hr IV .Q24H [facility]ES [facility] Rx#: [id number] Results 08/16/24 05:44 08/16/24 05:44 Cardiac Enzymes 08/15/24 08/15/24 08/15/24 Range/Units 10:40 10:40 15:42 AST 31 (17-59) U/L Troponin I 0.055 H* 0.404 H* (0.000-0.034) ng/mL 08/15/24 08/16/24 Range/Units 18:34 05:44 AST 32 (17-59) U/L Troponin I 0.448 H* (0.000-0.034) ng/mL Coagulation 08/15/24 08/15/24 08/16/24 Range/Units 11:16 21:45 05:44 PT 10.4 11.1 (10.0-12.5) sec APTT 24.2 31.3 H (22.0-30.0) sec 08/16/24 Range/Units 05:44 PT (10.0-12.5) sec APTT 39.9 H (22.0-30.0) sec Lipids 08/16/24 Range/Units 05:44 Triglycerides 131.00 (0.00-149.00) mg/dL Cholesterol 186.00 (0.00-200.00) mg/dL HDL Cholesterol 37.80 L (40.00-60.00) mg/dL Cholesterol/HDL Ratio 4.92 Ratio CBC 08/16/24 Range/Units 05:44 WBC 10.4 (3.8-10.6) k/uL RBC 4.79 (4.30-5.90) m/uL Hgb 13.7 (13.0-17.5) gm/dL Hct 41.3 (39.0-53.0) % Plt Count 263 (150-450) k/uL Comprehensive Metabolic Panel 08/15/24 08/16/24 Range/Units 10:40 05:44 Sodium 139 139 (137-145) mmol/L Potassium 3.6 3.2 L (3.5-5.1) mmol/L Chloride 105 103 (98-107) mmol/L Carbon Dioxide 27 31 H (22-30) mmol/L BUN 23 H 21 H (9-20) mg/dL Creatinine 0.93 0.87 (0.66-1.25) mg/dL Glucose 148 H 121 H (74-99) mg/dL Calcium 9.3 9.5 (8.4-10.2) mg/dL AST 31 32 (17-59) U/L ALT 25 25 (4-49) U/L Alkaline Phosphatase 83 92 (38-126) U/L Total Protein 7.1 6.9 (6.3-8.2) g/dL Albumin 4.5 4.2 (3.5-5.0) g/dL Current Medications Generic Name Dose Route Start Last Admin Trade Name Freq PRN Reason Stop Dose Admin Aspirin 81 mg 08/16/24 09:00 Aspirin 81 Mg PO DAILY COUNT INCLUDES [facility] Atorvastatin Calcium 80 mg 08/16/24 09:00 Atorvastatin 80 Mg Tab PO DAILY COUNT INCLUDES THE [facility] Chlorthalidone 25 mg 08/16/24 09:00 Chlorthalidone 25 Mg Tab PO DAILY COUNT INCLUDES THE [facility] Clopidogrel Bisulfate 75 mg 08/16/24 09:00 Clopidogrel 75 Mg Tab PO DAILY COUNT INCLUDES THE [facility] Finasteride 5 mg 08/16/24 09:00 Finasteride 5 Mg Tab PO DAILY COUNT INCLUDES THE [facility] Heparin Sodium (Porcine) 0 unit 08/15/24 23:13 08/16/24 07:21 Heparin Sodium 1,000 Un/Ml (10ml Vl) IV 3,185 unit PER PROTOCOL PRN Administration Low PTT Protocol Heparin Sodium/Sodium Chloride 250 mls @ 10.069 mls/hr 08/15/24 14:45 08/16 07:24 25,000 unit/ Sodium Chloride IV 12.9 units/kg/hr .Q24H [facility] 16.442 mls/hr Administration Protocol 7.9 UNITS/KG/HR Losartan Potassium 100 mg 08/16/24 09:00 Losartan 50 Mg Tab PO DAILY COUNT INCLUDES [facility] Metoprolol Succinate 50 mg 08/16/24 09:00 Metoprolol Succinate (Er) 50 Mg Tab.Er.24h PO DAILY COUNT INCLUDES THE [facility] Nitroglycerin 0.4 mg 08/15/24 14:41 Nitroglycerin Sl Tabs 0.4 Mg Tab SUBLINGUAL Q5M PRN Chest Pain Sertraline HCl 100 mg 08/16/24 09:00 Sertraline 100 Mg Tab PO DAILY COUNT INCLUDES THE [facility] Tamsulosin HCl 0.4 mg 08/16/24 09:00 Tamsulosin 0.4 Mg Cap.Er.24h PO DAILY COUNT INCLUDES THE [facility] Trazodone HCl 50 mg 08/15/24 21:00 08/15/24 21:06 Trazodone Hcl 50 Mg Tab PO 50 mg HS [facility] Administration Intake and Output 08/15/24 08/16/24 08/16/24 22:59 06:59 14:59 Intake Total 76.524 112.996 Balance 76.524 112.996 Intake: Intake, IV Titration 76.524 112.996 Amount Heparin Sod,Pork in 0.45% 76.524 112.996 NaCl 25,000 unit In 0.45 % NaCl 1 250ml.bag @ 7.9 UNITS/KG/HR 10.069 mls/hr IV .Q24H [facility] Rx#: [id number] 08/16/24 05:44 08/16/24 05:44
[2024-08-16] MEDS: cloNIDine HCL 0.2 MG TAB PO STA (20:04)
[2024-08-17 07:39] LABS: HCT 39.2 % (39.0-53.0); HGB 12.9 gm/dL (13.0-17.5); MCH 28.5 pg (25.0-35.0); MCV 86.5 fL (80.0-100.0); Mean Platelet Volume 6.9; Platelet Count 272 k/uL (150-450); RBC 4.53 m/uL (4.30-5.90); RDW 13.6 % (11.5-15.5); WBC 10.3 k/uL (3.8-10.6)
[2024-08-17 08:02] LABS: ALT 26 U/L (4-49); AST 34 U/L (17-59); African American GFR (CKD) 71 (>60 ml/min/1.73 sqM); Albumin 4.2 g/dL (3.5-5.0); Alkaline Phosphatase 83 U/L (38-126); Anion Gap 6 mmol/L; Blood Urea Nitrogen 25 mg/dL (9-20); Calcium 9.4 mg/dL (8.4-10.2); Carbon Dioxide 32 mmol/L (22-30); Chloride 100 mmol/L (98-107); Glucose 111 mg/dL (74-99); Magnesium 1.8 mg/dL (1.6-2.3); Non-African American GFR(CKD) 62 (>60 ml/min/1.73 sqM); Potassium 3.4 mmol/L (3.5-5.1); Sodium 138 mmol/L (137-145); Total Bilirubin 1.3 mg/dL (0.2-1.3); Total Protein 6.9 g/dL (6.3-8.2)
[2024-08-17] MEDS: VALSARTAN 160 MG TAB PO SCH (09:48)
--- NOTE | 2024-08-17 11:54 | P.PN ---
Subjective Progress Note Date: 08/17/24 Hospital course: Patient is a pleasant 79-year-old male with a past medical history of CAD with previous stenting, known left bundle branch block, hypertension, hyperlipidemia, BPH, and recent TAVR on 07/21/2024. He presented to the emergency department secondary to reports of weakness. Patient reports he was feeling generalized weakness and immediately sat down and rested for a moment but upon getting up he began feeling pain to his midsternal chest and was unable to stand secondary to an overall weakness and heaviness throughout his body. EMS was called for transport to the hospital. Patient denies experiencing any dizziness, lightheadedness, changes in vision or hearing, palpitations, shortness of breath, cough or congestion, or experiencing any focal numbness or tingling in his extremities. Per ER report, patient received aspirin 324 mg p.o. x 1 dose and 1 nitroglycerin tablet sublingually in which he reports resulted in full resolution of chest pain prior to arrival in the hospital. On arrival to our facility, patient underwent evaluation in the emergency department. Vital signs upon arrival show blood pressure 167/91, heart rate 86, respiratory rate 20, temp 98.4 F, and SpO2 of 93% on room air. EKG was completed showing sinus me chanism at 86 bpm with an T wave inversions in leads I, aVL,left bundle branch block and T wave inversion in leads I and aVL ( Left bundle branch block and T wave inversion in lead I and aVL was present on previous EKG completed 07/23/2024). Chest x-ray completed showing mild pulmonary congestion consistent with mild CHF and moderate cardiomegaly. Labs completed and reviewed. CBC showing mild leukocytosis with WBC count of 13.7. Coagulation profile normal findings. BMP showing mild prerenal azotemia with BUN of 23 and a glucose of 148 otherwise normal findings. Liver profile unremarkable. Troponin elevated at 0.055 and proBNP 638. Patient was started on heparin infusion for unstable angina and admitted under services with consultation to cardiology. Troponins were trended resulting at 0.055, 0.404, and 0.448. Physical exam: Patient was seen and fully evaluated at bedside. He continues to deny any further episodes of chest pain or discomfort. Continues to have generalized weakness, but states improving and was able to walk with physical therapy with use of walker this morning. General: Nontoxic, no distress and appears stated age. Derm: Skin warm and dry, normal coloration for ethnicity. Head: Atraumatic, normocephalic and symmetric. Eyes: EOM's intact, no lid lag, and anicteric sclera Mouth: no lip lesions, mucus membranes moist Cardiovascular: regular rate and rhythm with normal S1S2, systolic murmur, positive posterior tibial pulses bilaterally, and cap refill < 2 seconds. Lungs: Respirations even, regular, and unlabored on room air. Lungs slightly diminished with diffuse expiratory wheezes bilaterally. No rhonchi, rales, or crackles noted. Abdominal: soft, nontender to palpation, no guarding, no appreciable organomegaly. Bilateral groin sites from previous TAVR placement showing no signs of hematoma. Ext: ROM intact. No gross muscle atrophy, no edema, no contractures Neuro: Speech clear, face symmetrical and CN II-XII grossly intact with no noted focal neuro deficits Psych: Alert and oriented to person, place, time, and situation. Appropriate and pleasant affect. Assessment and Plan of Care: Weakness with reports of chest pain upon standing, chest pain relieved after administration of sublingual nitroglycerin NSTEMI Status post TAVR on 07/21/2024 CAD status post stenting Left bundle branch block -Cardiology consulted, discussed with vending machine mechanic and cardiac WALLPAPERER. Heparin infusion was discontinued and losartan discontinued and patient started on valsartan 320 mg daily. -Telemetry monitoring -Troponins were trended resulting at 0.055, 0.404, and 0.448. -Continue cardiac medication regimen with aspirin 81 mg daily, atorvastatin 80 mg daily, chlorthalidone 25 mg daily, valsartan 320 mg daily, and metoprolol succinate 50 mg daily. -Lipid profile showing low HDL of 37.80 otherwise normal findings. -Echocardiogram was completed and currently pending report. -Sublingual nitro 0.4 mg every 5 minutes as needed for chest pain. Hypertension, poorly controlled -Monitor vital signs and continue daily medication regimen with valsartan 320 mg daily, and metoprolol succinate 50 mg daily. Hyperlipidemia -Continue daily medication regimen with atorvastatin 80 mg daily. BPH -Continue daily medication regimen with Flomax 0.4 mg daily. Data and Imaging reviewed: Morning labs reviewed. CBC showing stable normocytic anemia with hemoglobin of 12.9. BMP showing hypokalemia with potassium of 3.4 and orders placed for K-Dur 40 mill equivalents p.o. x 1 dose. BMP also showing hypercarbia with bicarb of 32 and prerenal azotemia with slight increase of renal function with BUN of 25, creatinine of 1.14, GFR of 62. Blood glucose 111. Magnesium 1.8. Continue close monitoring with repeat a.m. labs to monitor for resolution of hypokalemia and for follow-up on renal function to ensure no further elevation as patient was started on valsartan this morning. Vital signs reviewed. Blood pressure 191/90, heart rate 55, respiratory rate 18, temp 97.6 F, and SpO2 of 96% on room air. CODE STATUS: Full code DVT prophylaxis: Lovenox Anticipated discharge date: Pending clinical course Anticipated discharge place: Pending clinical course Patient was seen independently by Nurse Practitioner. This document was prepared using [employer] dictation software. Please allow for errors in stage director while rare they do occur. Mark Huggins NP rendered care for this patient independently, reviewed the findings and plan as documented in the note above and agree with plan. I did not physically speak with or examine the patient on this date. . Objective - Vital Signs Vital signs: Vital Signs Temp 97.9 F 08/17/24 04:50 Pulse 62 08/17/24 04:50 Resp 18 08/17/24 04:50 BP 163/73 08/17/24 04:50 Pulse Ox 98 08/17/24 08:02 FiO2 Intake & Output 08/16/24 08/17/24 08/17/24 18:59 06:59 18:59 Intake Total 122.996 10 Balance 122.996 10 Weight 127.459 kg 121.8 kg Intake: IV 10 10 Invasive Line 1 10 10 Intake, IV Titration 112.996 Amount Heparin Sod,Pork in 0.45% 112.996 NaCl 25,000 unit In 0.45 % NaCl 1 250ml.bag @ 7.9 UNITS/KG/HR 10.069 mls/hr IV .Q24H [facility] Rx#: [id number] Other: Voiding Method Urinal Toilet Urinal # Voids 1 # Bowel Movements 0 - Labs CBC & Chem 7: 08/17/24 06:45 08/17/24 06:45 Labs: Abnormal Lab Results - Last 24 Hours (Table) 08/16/24 08/16/24 08/17/24 Range/Units 05:44 13:02 06:45 Hgb 12.9 L (13.0-17.5) gm/dL APTT 33.0 H (22.0-30.0) sec Potassium (3.5-5.1) mmol/L Carbon Dioxide (22-30) mmol/L BUN (9-20) mg/dL Glucose (74-99) mg/dL HDL Cholesterol 37.80 L (40.00-60.00) mg/dL 08/17/24 Range/Units 06:45 Hgb (13.0-17.5) gm/dL APTT (22.0-30.0) sec Potassium 3.4 L (3.5-5.1) mmol/L Carbon Dioxide 32 H (22-30) mmol/L BUN 25 H (9-20) mg/dL Glucose 111 H (74-99) mg/dL HDL Cholesterol (40.00-60.00) mg/dL
--- NOTE | 2024-08-17 12:05 | P.PN ---
Subjective HISTORY OF PRESENT ILLNESS: 08/17/2024 Patient examined this morning at the bedside. Patient currently denies chest pain or pressure. He denies shortness of breath. Denies dizziness or lightheadedness. Patient's blood pressures remain elevated with a systolic between [id number]. PHYSICAL EXAM: VITAL SIGNS: Reviewed. GENERAL: Well-developed in no acute distress. NECK: Supple. No JVD or thyromegaly LUNGS: Respirations even and unlabored. Lungs essentially clear to auscultation bilaterally. HEART: Regular rate and rhythm. S1 and S2 heard. Systolic murmur. EXTREMITIES: Normal range of motion. No clubbing or cyanosis. Peripheral pulses intact. No lower extremity edema ASSESSMENT: Generalized weakness Left bundle branch block Hypertension, uncontrolled Hyperlipidemia Coronary artery disease with previous stenting History of TAVR, 07/21/2024 PLAN: Continue current cardiac medications Patient started on valsartan this morning. Continue to monitor blood pressure No changes to antihypertensive medication regimen today per Dr. Mckinley Further recommendations pending patient course Nurse practitioner note has been reviewed by physician. Signing provider agrees with the documented findings, assessment, and plan of care documented by POST CLOSER as a scribe. Objective - Vital Signs Vital signs: Vital Signs Temp 97.6 F 08/17/24 08:00 Pulse 55 L 08/17/24 08:00 Resp 18 08/17/24 08:00 BP 191/90 08/17/24 08:00 Pulse Ox 98 08/17/24 08:02 FiO2 Intake & Output 08/16/24 08/17/24 08/17/24 18:59 06:59 18:59 Intake Total 122.996 10 Balance 122.996 10 Weight 127.459 kg 121.8 kg Intake: IV 10 10 Invasive Line 1 10 10 Intake, IV Titration 112.996 Amount Heparin Sod,Pork in 0.45% 112.996 NaCl 25,000 unit In 0.45 % NaCl 1 250ml.bag @ 7.9 UNITS/KG/HR 10.069 mls/hr IV .Q24H SHARONDA Rx#: [id number] Other: Voiding Method Urinal Toilet Toilet Urinal Urinal # Voids 1 # Bowel Movements 0 - Labs CBC & Chem 7: 08/17/24 06:45 08/17/24 06:45 Labs: Abnormal Lab Results - Last 24 Hours (Table) 08/16/24 08/17/24 08/17/24 Range/Units 13:02 06:45 06:45 Hgb 12.9 L (13.0-17.5) gm/dL APTT 33.0 H (22.0-30.0) sec Potassium 3.4 L (3.5-5.1) mmol/L Carbon Dioxide 32 H (22-30) mmol/L BUN 25 H (9-20) mg/dL Glucose 111 H (74-99) mg/dL
[2024-08-17] MEDS: ENOXAPARIN 40 MG/0.4 ML SYRINGE SQ SCH (13:12)
[2024-08-17] MEDS: POTASSIUM CHLORIDE ER 20 MEQ TAB.ER PO STA (13:12)
--- NOTE | 2024-08-18 07:34 | CA ---
Transthoracic Echo Report Name: Juan Diego Bo Age: 79 Gender: M : 1945 Exam Date: 08/17/2024 08:12 Exam Location: [facility] Ht (in): 72 Wt (lb): 281 Ordering Physician: Mark Huggins Attending/Referring Phys: Income Tax Adjuster Adwoa Ruiz RDCS Procedure CPT: Indications: NSTEMI, recent TAVR Cardiac Hx: Technical Quality: Poor Contrast 1: Definity Total Dose (mL): 2 Contrast 2: Total Dose (mL): MEASUREMENTS (Male / Female) Normal Values 2D ECHO LVOT Diameter 1.7 cm LA Volume 104.5 cm??? 18 - 58 / 22 - 52 cm??? LA Volume Index 40.3 cm???/m??? 16 - 28 cm???/m??? M-MODE Aortic Root Diameter MM 2.2 cm LA Systolic Diameter MM 3.7 cm LA Ao Ratio MM 1.7 DOPPLER AV Peak Velocity 191.5 cm/s AV Peak Gradient 14.7 mmHg AV Mean Velocity 143.1 cm/s AV Mean Gradient 8.8 mmHg AV Velocity Time Integral 39.6 cm LVOT Peak Velocity 83.5 cm/s LVOT Peak Gradient 2.8 mmHg LVOT Velocity Time Integral 21.2 cm LVOT Stroke Volume 46.8 cm??? LVOT Stroke Volume Index 19.0 ml/m??? LVOT Cardiac Index 1155.6 cm???/min???m??? AV Area Cont Eq vti 1.2 cm??? AV Area Cont Eq pk 1.0 cm??? FINDINGS Left Ventricle Left ventricular ejection fraction is estimated at 45-50%. Abnormal septal motion consistent with left bundle branch block. Mildly reduced global left ventricular systolic function. Right Ventricle Right Atrium Left Atrium Severely increased left atrial volume. Mildly increased left atrial area. Mitral Valve Aortic Valve Normally functioning Joaquín bioprosthetic aortic valve without stenosis with a peak velocity of 1.91m/s, peak gradient 15mmHg, mean gradient 9 mmHg. Tricuspid Valve Pulmonic Valve Pericardium Aorta CONCLUSIONS Technically poor quality study probably technically difficult. Aortic valve bioprosthesis is not well-seen no significant gradient. Mildly impaired global systolic function. Previewed by: Dr. Brigitte Coffey MD (Electronically Signed) Final Date: 18 August 2024 07:33
[2024-08-18 07:52] LABS: HCT 40.8 % (39.0-53.0); HGB 13.9 gm/dL (13.0-17.5); MCH 29.2 pg (25.0-35.0); MCHC 34.1 g/dL (31.0-37.0); MCV 85.7 fL (80.0-100.0); Mean Platelet Volume 7.1; Platelet Count 238 k/uL (150-450); RBC 4.76 m/uL (4.30-5.90); RDW 14.1 % (11.5-15.5); WBC 9.4 k/uL (3.8-10.6)
[2024-08-18 08:09] LABS: ALT 31 U/L (4-49); AST 46 U/L (17-59); African American GFR (CKD) 80 (>60 ml/min/1.73 sqM); Albumin 4.8 g/dL (3.5-5.0); Alkaline Phosphatase 86 U/L (38-126); Anion Gap 7 mmol/L; Blood Urea Nitrogen 26 mg/dL (9-20); Calcium 9.9 mg/dL (8.4-10.2); Carbon Dioxide 30 mmol/L (22-30); Chloride 101 mmol/L (98-107); Glucose 102 mg/dL (74-99); Magnesium 1.8 mg/dL (1.6-2.3); Non-African American GFR(CKD) 69 (>60 ml/min/1.73 sqM); Potassium 3.7 mmol/L (3.5-5.1); Sodium 138 mmol/L (137-145); Total Bilirubin 1.2 mg/dL (0.2-1.3); Total Protein 7.6 g/dL (6.3-8.2)
--- NOTE | 2024-08-18 11:05 | P.DS ---
Providers Date of admission: 08/15/24 17:26 Expected date of discharge: 08/18/24 Attending physician: Lesley Bautista MD Consults: 08/15/24 14:41 Consult Physician Urgent Consulting Provider: Tylor oJrge Consult Reason/Comments: ua Do you want consulting provider notified?: Yes Primary care physician: Stated None Hospital Course: Discharge Diagnosis: Weakness with reports of chest pain upon standing, chest pain relieved after administration of sublingual nitroglycerin. He was evaluated by PT/OT and it was reported that patient tolerated activity well and demonstrated safety and independence with mobility, transfers, and gait. Physical therapist recommending patient is safe for discharge home. Unstable angina, chest pain relieved after administration of sublingual nitroglycerin prior to arriving in our facility and no further episodes of chest pain reported after arrival. NSTEMI, likely secondary to hypertensive urgency. Patient was seen and evaluated by optical model maker and tester. Troponins were trended resulting at 0.055, 0.404, and 0.448. Echocardiogram completed showing an EF of 45 to 50% with a bioprosthetic aortic valve and mildly impaired global systolic function. Medication changes were made, patient's metoprolol and losartan was discontinued and patient started on carvedilol 6.25 mg twice daily, valsartan 320 mg daily, Plavix 75 mg daily, and aspirin 81 mg daily. Patient cleared from cardiology perspective recommending outpatient follow-up in their office in 1 week. 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 CAD status post stenting. Left bundle branch block. Hypertension, poorly controlled Hyperlipidemia. Continue daily medication regimen with atorvastatin 80 mg daily. BPH, Continue daily medication regimen with Flomax 0.4 mg daily. Hospital course: Patient is a pleasant 79-year-old male with a past medical history of CAD with previous stenting, known left bundle branch block, hypertension, hyperlipidemia, BPH, and recent TAVR on 07/21/2024. He presented to the emergency department secondary to reports of weakness. Patient reports he was feeling generalized weakness and immediately sat down and rested for a moment but upon getting up he began feeling pain to his midsternal chest and was unable to stand secondary to an overall weakness and heaviness throughout his body. EMS was called for transport to the hospital. Patient denies experiencing any dizziness, lightheadedness, changes in vision or hearing, palpitations, shortness of breath, cough or congestion, or experiencing any focal numbness or tingling in his extremities. Per ER report, patient received aspirin 324 mg p.o. x 1 dose and 1 nitroglycerin tablet sublingually in which he reports resulted in full resolution of chest pain prior to arrival in the hospital. On arrival to our facility, patient underwent evaluation in the emergency department. Vital signs upon arrival show blood pressure 167/91, heart rate 86, respiratory rate 20, temp 98.4 F, and SpO2 of 93% on room air. EKG was completed showing sinus mechanism at 86 bpm with an T wave inversions in leads I, aVL,left bundle branch block and T wave inversion in leads I and aVL ( Left bundle branch block and T wave inversion in lead I and aVL was present on previous EKG completed 07/23/2024). Chest x-ray completed showing mild pulmonary congestion consistent with mild CHF and moderate cardiomegaly. Labs completed and reviewed. CBC showing mild leukocytosis with WBC count of 13.7. Coagulation profile normal findings. BMP showing mild prerenal azotemia with BUN of 23 and a glucose of 148 otherwise normal findings. Liver profile unremarkable. Troponin elevated at 0.055 and proBNP 638. Patient was started on heparin infusion for unstable angina and admitted under services with consultation to cardiology. Troponins were trended resulting at 0.055, 0.404, and 0.448. Echocardiogram completed showing an EF of 45 to 50% with a bioprosthetic aortic valve and mildly impaired global systolic function. Medication changes were made, patient's metoprolol and losartan was discontinued and patient started on carvedilol 6.25 mg twice daily, valsartan 320 mg daily, Plavix 75 mg daily, and aspirin 81 mg daily. Patient cleared from cardiology perspective recommending outpatient follow-up in their office in 1 week. Patient was also evaluated by PT/OT and it was reported that patient tolerated activity well and demonstrated safety and independence with mobility, transfers, and gait. Physical therapist recommending patient is safe for discharge home. Medically, patient is stable at this time and stable for discharge home. Patient to follow-up outpatient with PCP in 1 to 2 days, and optical model maker and tester in 1 to 2 weeks. Patient discharged home with home care. Physical exam: Patient was seen and fully evaluated at bedside. He continues to deny any further episodes of chest pain or discomfort. Continues to have generalized weakness, but states improving and was able to walk with physical therapy with use of walker this morning. General: Nontoxic, no distress and appears stated age. Derm: Skin warm and dry, normal coloration for ethnicity. Head: Atraumatic, normocephalic and symmetric. Eyes: EOM's intact, no lid lag, and anicteric sclera Mouth: no lip lesions, mucus membranes moist Cardiovascular: regular rate and rhythm with normal S1S2, systolic murmur, positive posterior tibial pulses bilaterally, and cap refill < 2 seconds. Lungs: Respirations even, regular, and unlabored on room air. Lungs slightly diminished with diffuse expiratory wheezes bilaterally. No rhonchi, rales, or crackles noted. Abdominal: soft, nontender to palpation, no guarding, no appreciable organomegaly. Bilateral groin sites from previous TAVR placement showing no signs of hematoma. Ext: ROM intact. No gross muscle atrophy, no edema, no contractures Neuro: Speech clear, face symmetrical and CN II-XII grossly intact with no noted focal neuro deficits Psych: Alert and oriented to person, place, time, and situation. Appropriate and pleasant affect. A total of 38 minutes of time were spent preparing this complex discharge summary. Pt was discharged on 08/18/2024 at 11 AM. Patient was seen independently by Nurse Practitioner. This document was prepared using [employer] dictation software. Please allow for errors in label folder while rare they do occur. Mark Huggins NP rendered care for this patient independently, reviewed the findings and plan as documented in the note above. I did not physically speak with or examine the patient on this date. Patient Condition at Discharge: Stable Plan - Discharge Summary Discharge Rx Participant: No New Discharge Prescriptions: New carvediloL [Coreg] 6.25 mg PO BID-W/MEALS 30 Days #60 tab Valsartan [Diovan] 320 mg PO DAILY 30 Days #60 tab Clopidogrel [Plavix] 75 mg PO DAILY 30 Days #30 tab Aspirin 81 mg PO DAILY 30 Days #30 tab Continue Tamsulosin [Flomax] 0.4 mg PO DAILY Atorvastatin [Lipitor] 80 mg PO DAILY #30 tab Finasteride [Proscar] 5 mg PO DAILY traZODone HCL [Desyrel] 50 mg PO HS Sertraline [Zoloft] 100 mg PO DAILY Chlorthalidone 25 mg PO DAILY Discontinued Losartan Potassium [Cozaar] 100 mg PO DAILY Metoprolol Succinate (ER) [Toprol XL] 50 mg PO DAILY Discharge Medication List Tamsulosin [Flomax] 0.4 mg PO DAILY 09/17/18 [History] Atorvastatin [Lipitor] 80 mg PO DAILY #30 tab 11/08/19 [Rx] Chlorthalidone 25 mg PO DAILY 06/11/24 [History] Finasteride [Proscar] 5 mg PO DAILY 06/11/24 [History] Sertraline [Zoloft] 100 mg PO DAILY 06/11/24 [History] traZODone HCL [Desyrel] 50 mg PO HS 06/11/24 [History] Aspirin 81 mg PO DAILY 30 Days #30 tab 08/18/24 [Rx] Clopidogrel [Plavix] 75 mg PO DAILY 30 Days #30 tab 08/18/24 [Rx] Valsartan [Diovan] 320 mg PO DAILY 30 Days #60 tab 08/18/24 [Rx] carvediloL [Coreg] 6.25 mg PO BID-W/MEALS 30 Days #60 tab 08/18/24 [Rx] Follow up Appointment(s)/Referral(s): Milvia French [REFERRING] - 1-2 Days Tylor Jorge MD [STAFF PHYSICIAN] - 1 Week (keep your previously scheduled appt in september ) [facility] Visiting Nurse, [NON-STAFF] - Patient Instructions/Handouts: Chest Pain (DC), Hypertension (DC) Activity/Diet/Wound Care/Special Instructions: Activity: As tolerated. Take breaks as needed. Diet: Heart healthy and carb consistent diet. Avoid salts, or foods with hidden salts such as canned or boxed foods and frozen dinners. Extra salt makes your heart work harder and traps the fluid in your body for longer. Special Instructions: Take all of your medications as directed and remember to keep all of your doctor's appointments and follow-up as needed. Wishing you a truly blessed and wonderful Holiday Season and a Happy Healthy New Year!! Thank you for allowing us to participate in your care, it was truly a pleasure having you for our patient!!! Discharge/Stand Alone Forms: Who Do I Call?, Assisted Living Facilities, Help In The Home, Area PCPs Discharge Disposition: HOME SELF-CARE
--- NOTE | 2024-08-18 12:05 | P.PN ---
Subjective HISTORY OF PRESENT ILLNESS: 08/17/2024 Patient examined this morning at the bedside. Patient currently denies chest pain or pressure. He denies shortness of breath. Denies dizziness or lightheadedness. Patient's blood pressures remain elevated with a systolic between [id number]. 08/18/2024 Patient examined this morning at the bedside. Patient currently denies chest pain or pressure. He denies shortness of breath. Blood pressure this morning 148/70. PHYSICAL EXAM: VITAL SIGNS: Reviewed. GENERAL: Well-developed in no acute distress. NECK: Supple. No JVD or thyromegaly LUNGS: Respirations even and unlabored. Lungs essentially clear to auscultation bilaterally. HEART: Regular rate and rhythm. S1 and S2 heard. Systolic murmur. EXTREMITIES: Normal range of motion. No clubbing or cyanosis. Peripheral pulses intact. No lower extremity edema ASSESSMENT: Generalized weakness Left bundle branch block Hypertension, uncontrolled Hyperlipidemia Coronary artery disease with previous stenting History of TAVR, 07/21/2024 PLAN: Continue current cardiac medications Continue metoprolol. Begin carvedilol Patient is stable for discharge home today from a cardiac standpoint Nurse practitioner note has been reviewed by physician. Signing provider agrees with the documented findings, assessment, and plan of care documented by ASSEMBLER SEAT as a scribe. Objective - Vital Signs Vital signs: Vital Signs Temp 97.5 F L 08/18/24 08:00 Pulse 87 08/18/24 08:00 Resp 18 08/18/24 08:00 BP 148/70 08/18/24 08:00 Pulse Ox 97 08/18/24 08:00 FiO2 Intake & Output 08/17/24 08/18/24 08/18/24 18:59 06:59 18:59 Intake Total 236 247 118 Balance 236 247 118 Weight 121.4 kg Intake: IV 10 Invasive Line 1 10 Oral 236 237 118 Other: Voiding Method Toilet Toilet Urinal Incontinent # Voids 1 1 - Labs CBC & Chem 7: 08/18/24 07:28 08/18/24 07:28 Labs: Abnormal Lab Results - Last 24 Hours (Table) 08/18/24 Range/Units 07:28 BUN 26 H (9-20) mg/dL Glucose 102 H (74-99) mg/dL
[2024-08-18 12:56] VITALS: BP 111/56; PULSE 64; RESP 17; TEMP 98.2
[2024-08-18] MEDS ORDERED: carvediloL 6.25 MG TAB PO SCH (17:30)
--- NOTE | 2024-08-20 11:10 | CDI ---
Documentation Clarification Form Date: 08/20/2024 10:56:49 AM From: Sindy Lopez Phone: Admit Date: 08/15/2024 05:26:00 PM Patient Name: Juan Diego Bo Visit Number: [id number] Discharge Date: 08/18/2024 12:51:00 PM ATTENTION: The Clinical Documentation Specialists (CDI) and [facility] Coding Staff appreciate your assistance in clarifying documentation. Please respond to the clarification below the line at the bottom and electronically sign. The CDI & [facility] Coding staff will review the response and follow-up if needed. Please note: Queries are made part of the Legal Health Record. If you have any questions, please contact the author of this message via ITS. Doctor/Provider: Cayden Mckinley Your patient has the documented diagnosis of unspecified CHF in DS on 08/18 Additional information regarding the [type, acuity] of CHF is requested. History/Risk Factors: Patient is a pleasant 79-year-old male with a past medical history ofCADwith previousstenting, knownleft bundle branch block,hypertension,hyperlipidemia, BPH, and recentTAVRon 07/21/2024.He presented to the emergency department secondary to reports ofweakness. Patient reports he was feelinggeneralized weaknessand immediately sat down and rested for a moment but upon getting up he began feelingpainto his midstream chest and was unable to stand secondary to an overallweaknessand heaviness throughout his body. Clinical Indicators: VS/Pulse OX: on 08/15 -Vitalsigns upon arrival show blood pressure 167/91, heart rate 86, respiratory rate 20, temp 98.4 F, and SpO2 of 93% on room air. BNP: ON 08/15 638 Echocardiogram Results: EKGwas completed showing sinus mechanism at 86 bpm with an T wave inversions in leads I, aVL,left bundle branch block and T wave inversion in leads I and aVL ( Left bundle branch block and T wave inversion in lead I and aVL was present on previousEKGcompleted 07/23/2024). Chest X Ray: On 08/15Findings suggestive of mildCHFand clinical correlation isrecommended. Echo 08/17 Left Ventricle Left ventricular ejection fraction is estimated at 45-50%.Abnormalseptal motion consistent withleft bundle branch block. Mildlyreducedglobal left ventricular systolic function. On 08/15 h/p -Chest x-ray completed showing mild pulmonary congestion consistent with mildCHFand moderate cardiomegaly. Treatment: continue cardiac medication regimen with aspirin 81 mg daily, atorvastatin 80 mg daily, chlorthalidone 25 mg daily, valsartan 320 mg daily, and metoprolol succinate 50 mg daily. Cardiology consulted, discussed with gas regulator repairer and cardiac PRESS OPERATOR ASSISTANT. Heparin infusionwas discontinued and losartan discontinued and patient started on valsartan 320 mg daily. In your professional opinion, can you please clarify the type of CHF if known? [ xx ] Unable to determine (Template Last Revised: October 2020) MTDD
== END 2024-08-18 12:51 | disposition home health service (06) | DRG 282 ==
LOC: EC 10:29 → 3SCARD 14:42 → OBSVTOIN 17:26 → 3SCARD 19:59
PROVIDERS: ADMIT Family Medicine; ATTEND Family Medicine
DX: I21.4 Non-ST elevation (NSTEMI) myocardial infarction (principal); I16.0 Hypertensive urgency; I44.7 Left bundle-branch block, unspecified; I25.10 Atherosclerotic heart disease of native coronary artery without angina pectoris; E78.5 Hyperlipidemia, unspecified; I11.0 Hypertensive heart disease with heart failure; I50.9 Heart failure, unspecified; N40.0 Benign prostatic hyperplasia without lower urinary tract symptoms; R53.1 Weakness; Z95.2 Presence of prosthetic heart valve; Z95.5 Presence of coronary angioplasty implant and graft; Z95.3 Presence of xenogenic heart valve
CPT/HCPCS: 36415; 71046; 80053; 80061; 81001; 83735; 83880; 84484; 85025; 85027; 85049; 85610; 85730; 93005; 93306; 94760; 96365; 96366; 96372; 99291

== ENCOUNTER → 2024-09-10 | Outpatient (CLI) | payer MEDICARE ==
[2024-09-10 20:03] LABS: Blood Urea Nitrogen 16.3 mg/dL (9.0-27.0); Carbon Dioxide 28.5 mmol/L (21.6-31.8); Chloride 99 mmol/L (96-109); Glucose 94 mg/dL (70-110); Potassium 3.9 mmol/L (3.5-5.5); Sodium 140 mmol/L (135-145)
[2024-09-10 20:47] LABS: Basophils # (A) 0.06 X 10*3/uL (0.00-0.10); Basophils % (A) 0.7 %; Eosinophils # (A) 0.41 X 10*3/uL (0.04-0.35); Eosinophils % (A) 4.6 %; HCT 39.3 % (39.6-50.0); HGB 13.4 g/dL (13.0-17.0); Lymphocytes # (A) 1.86 X 10*3/uL (0.90-5.00); Lymphocytes % (A) 21.1 %; MCH 28.3 pg (27.0-32.0); MCHC 34.1 g/dL (32.0-37.0); MCV 82.9 FL (80.0-97.0); Mean Platelet Volume 9.8 FL (9.5-12.2); Monocytes # (A) 0.87 X 10*3/uL (0.20-1.00); Monocytes % (A) 9.9 %; NRBC Per 100 WBC 0 X 10*3/uL (0.00-0.01); Neutrophils # (A) 5.58 X 10*3/uL (1.80-7.70); Neutrophils % (A) 63.2 %; Platelet Count 313 X 10*3/uL (140-440); RBC 4.74 X 10*6/uL (4.40-5.60); WBC 8.82 X 10*3/uL (4.50-10.00)
== END | disposition home or self-care (01) ==
LOC: LABWHC1 15:28
PROVIDERS: ATTEND Thoracic Surgery (Cardiothoracic Vascular Surgery)
DX: Z01.818 Encounter for other preprocedural examination (principal); I35.1 Nonrheumatic aortic (valve) insufficiency
CPT/HCPCS: 36415; 80051; 82565; 82947; 84520; 85025

== ENCOUNTER → 2024-09-20 | Outpatient (CLI) | payer MEDICARE ==
[2024-09-20 18:18] LABS: ALT 21 U/L (10-49); AST 25 U/L (14-35)
== END | disposition home or self-care (01) ==
LOC: LABWHC1 10:34
PROVIDERS: ATTEND Internal Medicine Cardiovascular Disease
DX: E78.2 Mixed hyperlipidemia (principal)
CPT/HCPCS: 36415; 80061; 84450; 84460